=== PATIENT | female | born 1930 | race Caucasian/White ===

== ENCOUNTER → 2017-01-23 | Outpatient (CLI) | payer MEDICARE, OTHER ==
[~2017-01-23] MED LIST: ACET-2723 PO; HYDR-4246 PO; LISI40TA4 PO; METO-275 PO; VENL37.570 PO; VENL75CA46 PO
--- NOTE | 2017-01-23 09:50 | DI ---
EXAM: KUB COMPARISON: 10/31/2015. 06/20/2015. HISTORY: ITS.REASON: N20.0 L KIDNEY STONE; Z96.0 URETERAL STENT . FINDINGS: There is a small 3 mm calcification projecting over the lower pole of the right kidney. Multiple calcific densities are seen at the mid and lower pole of the left kidney ranging in size from 2 mm to 1.2 cm. These appear similar to the prior exam. No definite calcific densities are seen projecting over the past of the ureters. Calcifications are seen at the right pelvis likely representing phleboliths. The visceral organ outlines are unremarkable. There is an unremarkable bowel gas pattern. IMPRESSION: 1. Bilateral renal calculi again noted. 2. No definite calcifications are seen along the paths of the ureters. 3. Calcifications at the right pelvis may represent phleboliths. LOCATION OF DICTATION: [facility] – [place] .
== END ==
LOC: IMA 09:18
PROVIDERS: ATTEND Specialist
DX: N20.0 Calculus of kidney (principal); I99.8 Other disorder of circulatory system; Z96.0 Presence of urogenital implants

== ENCOUNTER 2017-06-03 15:19 | Inpatient (IN) ==
--- NOTE | 2017-06-03 15:43 | Emergency Department Report ---
General Adult HPI - General Chief complaint: Fall Stated complaint: Dizzy/Fall Time Seen by Provider: 06/03/17 15:35 Source: patient, family (son ) Limitations: no limitations - History of Present Illness HPI narrative: Patient resides at home and her son lives with her. Patient was here yesterday and dx with right kidney stone. Pt has a hx of renal stones and sx were the same . KUB was done and it indicated a stone approx 6 mm in size in the right ureter, Patient was d/c on norco and reportedly took one prior to the dizziness and fall however patient is a very poor historian and son provides minimal information. Patient is here today after sustaining a fall [employer]; patient states she was dizzy and stepped down a stair that was between rooms and dropped to her knees; this was an unwitnessed fall . Patient states she crawled to the carpet where she was able to get her self up. Patient does deny any flank or kidney stone pain at present. Patient is tremulous which was noted on her visit yesterday and patient states is "normal ' for her Room air sats noted to be 82% at time of arrival without noted dyspnea. Sats yesterday when she was here for kidney stone sats documented at 94% on room air. Patient was placed on 3 L/NC and sats went up to mid 90's. complaint: fall Onset (ago): hour(s) Relieving factors: none Exacerbating factors: none Associated symptoms: denies other symptoms - Related Data Home Medications Medication Instructions Recorded Confirmed Venlafaxine HCl [Effexor Xr] 37.5 mg PO HS #0 03/23/10 08/08/17 Venlafaxine HCl [Effexor Xr] 75 mg PO QAM #0 03/23/10 08/08/17 Acetaminophen [Tylenol Extra 1,000 mg PO TID #0 04/12/15 08/08/17 Strength] Lisinopril 40 mg PO DAILY #0 tab 08/31/16 08/08/17 Chromium Picolinate 1,000 mcg PO DAILY 06/02/17 08/08/17 Multivitamin [One Daily 1 tab PO DAILY 06/02/17 08/08/17 Multivitamin] [place]-3 Fatty Acids [[place]-3] 1,000 mg PO DAILY 06/02/17 08/08/17 Turmeric Root Extract [Turmeric] 500 mg PO DAILY 06/03/17 08/08/17 Amlodipine [Norvasc] 5 mg PO HS 08/08/17 08/08/17 Hydrocodone/APAP 5/325 [[place] 1 tab PO Q4H PRN 08/08/17 08/08/17 5/325] Metoprolol Succinate 25 mg PO DAILY 08/08/17 08/08/17 Previous Rx's Medication Instructions Recorded Magnesium Oxide [Magox] 800 mg PO DAILY tablet 06/08/17 Allergies Allergy/AdvReac Type Severity Reaction Status Date / Time phenazopyridine Allergy Mild Verified 08/08/17 16:42 amoxicillin Allergy Unknown Verified 08/08/17 16:42 ampicillin Allergy Unknown Verified 08/08/17 16:42 atorvastatin Allergy Unknown rash Verified 08/08/17 16:26 azithromycin Allergy Unknown Verified 08/08/17 16:26 benzonatate Allergy Unknown Verified 08/08/17 16:26 cefaclor Allergy Unknown Verified 08/08/17 16:26 erythromycin base Allergy Unknown Verified 08/08/17 16:26 fexofenadine Allergy Unknown Verified 08/08/17 16:26 meloxicam Allergy Unknown Verified 08/08/17 16:26 morphine Allergy Unknown NAUSEA Verified 08/08/17 16:26 naproxen Allergy Unknown Verified 08/08/17 16:26 Penicillins Allergy Unknown Verified 08/08/17 16:26 rofecoxib Allergy Unknown Verified 08/08/17 16:26 Sulfa (Sulfonamide Allergy Unknown Verified 08/08/17 16:26 Antibiotics) albuterol AdvReac Unknown Verified 08/08/17 16:26 Review of Systems All systems: reviewed and negative except as stated Constitutional: Reports: as per HPI, weakness (generalized ). Denies: fever, chills Eyes: Reports: as per HPI. Denies: eye pain, eye discharge ENT: Reports: as per HPI. Denies: ear pain, throat pain Cardiovascular: Reports: as per HPI. Denies: chest pain, palpitations, dyspnea on exertion Respiratory: Reports: as per HPI. Denies: cough, dyspnea, wheezes Gastrointestinal: Reports: as per HPI. Denies: abdominal pain, nausea, vomiting Genitourinary: Reports: as per HPI. Denies: urgency, dysuria, frequency PFSH Patient Stated Medical History Hypertension Yes Hx Kidney Stones Yes Medical History Updates: HTN. HL. Depression - Social History Smoking status: Never smoker Physical Exam - Limitations Limitations: no limitations - General General appearance: alert, in no apparent distress - Normal Exams: Head:: Normocephalic without trauma Eyes:: Pupils are PERRLA w/ EOMI, No scleral icterus, irritation, or foreign bodies noted Neck:: Full range of motion, without adenopathy, JVD, bruits or thyromegaly Chest/Respirations:: Clear all harding, with good airflow, and symmetry bilaterally Cardiovascular:: Regular rate and rhythm, without murmur or gallop, Pulses 2+ all extremities, capillary refill, <2 seconds all extremities Abdomen:: Bowel sounds positive Lymphatic:: No lymphadenopathy, or lymphedema noted Musculoskeletal:: No tenderness, or deformity noted, good range of motion, all extremities Integumentary:: No rashes, hives, or bruising noted, hair and nails, without abnormality Neurological:: Patient is alert, and oriented, cranial nerves, motor/sensory/ cerebellar, exams w/o gross deficits, to observation Psychiatric:: Patient exhibits, appropriate attention, emotion and affect Course - Reevaluation(s) Reevaluation #1: Saturations remain mid 80's on room air. No hx of COPD or CHF; does have occasional cough and complaints of sinus drainage. Breathing tx ordered. Addtional lab ordered now that was initially not ordered (CBC, CMP) because it had been done just 24 hours ago. CXR indicates cardiomegaly with possible effusion; no prior films to compare. Because of continued low sats, with decreased breath sounds, a breathing tx was ordered which did not improve sats. Additional lab work was ordered including an ABG . - Consultations Consultation #1: Dr Milligan Time: 17:30 (will admit; pending head CT and requests d dimer ) Vital Signs Temperature 98.1 F 06/03/17 15:24 Pulse Rate 84 06/03/17 15:24 Respiratory Rate 22 06/03/17 15:24 Blood Pressure 139/62 06/03/17 15:24 Pulse Oximetry 82 L 06/03/17 15:24 Temperature 97.0 F 06/08/17 08:00 Pulse Rate 94 06/08/17 08:00 Respiratory Rate 20 06/08/17 08:00 Blood Pressure 187/74 H 07/31/17 08:00 Pulse Oximetry 95 06/08/17 08:00 Medical Decision Making - [facility] Narrative Medical decision making narrative: Patient here for dizziness and fall to knees but oxygen saturations noted to be mid 80's without etiology so additional work up was done. Creat and BUN elevated since yesterday with creat 0.9 to 1.7. Hospitalist notified and accepts patient. Will add d dimer. - Differential Diagnosis CHF, COPD, PE, renal failure, dehydration, pneumonia - Lab Data Result diagrams: 06/07/17 03:56 06/08/17 07:48 Lab Results 06/03/17 06/03/17 06/03/17 Range/Units 15:55 15:55 15:55 WBC 11.4 H (4.5-11.0) T/MM3 RBC 4.20 (4.00-5.20) M/MM3 Hgb 12.5 (12-16) GM/DL Hct 38.1 (36-46) % MCV 90.7 (80-100) UM3 MCH 29.8 (26-34) UUG MCHC 32.8 (31-37) GM/DL RDW Std Deviation 42.0 (36.9-50.2) FL Plt Count 280 (130-400) T/MM3 MPV 10.2 (9.4-12.4) UM3 Immature Gran % (Auto) Not performed Neut % (Auto) Not performed Lymph % (Auto) Not performed [place] % (Auto) Not performed Eos % (Auto) Not performed Baso % (Auto) Not performed Neut # Not performed Lymph # Not performed [place] # Not performed Eos # Not performed Baso # Not performed Abs Immat Gran (auto) Not performed Neutrophils % (Manual) 91.0 H (33-66) % Lymphocytes % (Manual) 9.0 L (23-45) % Neutrophils # (Manual) 10.4 H (1.8-7.7) T/MM3 Lymphocytes # (Manual) 1.0 (1-4.8) T/MM3 RBC Morph Comment Normal D-Dimer 348 H (0-230) NG/ML ABG pH (7.350-7.450) ABG pCO2 (34-45) MMHG ABG pO2 (80-100) MMHG ABG HCO3 (22-26) MEQ/L ABG Total CO2 (23-27) MEQ/L ABG O2 Saturation (95.0-98.0) % ABG Base Excess (-2.0-2.0) MMOL/L O2 Delivery Method FiO2 % Turbidity < 20 (0-20) Sodium 143 (134-144) MEQ/L Potassium 4.2 (3.6-5) MEQ/L Chloride 105 (98-107) MEQ/L Carbon Dioxide 25 (22-30) MEQ/L Anion Gap 13 (5-15) MEQ/L BUN 29.0 H D (7-17) MG/DL Creatinine 1.7 H D (0.7-1.2) MG/DL GFR Calculation 28 BUN/Creatinine Ratio 17 (6-26) RATIO Glucose 123 H (65-110) MG/DL Calculated Osmolality 282 H (261-280) MOSM/KG Calcium 9.6 (8.4-10.2) MG/DL Total Bilirubin 0.60 (0.20-1.30) MG/DL Icterus Index < 2 (0-7) AST 30 (14-36) U/L ALT 40 (9-52) U/L Alkaline Phosphatase 69 (38-126) U/L Troponin I (0-0.12) ng/ml B-Natriuretic Peptide 3130 H (0-175) pg/mL Total Protein 6.5 (6.3-8.2) G/DL Albumin 4.3 (3.5-5.0) G/DL Globulin 2.2 L (2.4-3.6) G/DL Albumin/Globulin Ratio 2.0 (1.1-2.2) RATIO Specimen Hemolysis < 15 (0-25) 06/03/17 06/03/17 Range/Units 15:57 17:10 WBC (4.5-11.0) T/MM3 RBC (4.00-5.20) M/MM3 Hgb (12-16) GM/DL Hct (36-46) % MCV (80-100) UM3 MCH (26-34) UUG MCHC (31-37) GM/DL RDW Std Deviation (36.9-50.2) FL Plt Count (130-400) T/MM3 MPV (9.4-12.4) UM3 Immature Gran % (Auto) Neut % (Auto) Lymph % (Auto) [place] % (Auto) Eos % (Auto) Baso % (Auto) Neut # Lymph # [place] # Eos # Baso # Abs Immat Gran (auto) Neutrophils % (Manual) (33-66) % Lymphocytes % (Manual) (23-45) % Neutrophils # (Manual) (1.8-7.7) T/MM3 Lymphocytes # (Manual) (1-4.8) T/MM3 RBC Morph Comment D-Dimer (0-230) NG/ML ABG pH 7.379 (7.350-7.450) ABG pCO2 43 (34-45) MMHG ABG pO2 71 L (80-100) MMHG ABG HCO3 25 (22-26) MEQ/L ABG Total CO2 27 (23-27) MEQ/L ABG O2 Saturation 94.0 L (95.0-98.0) % ABG Base Excess 0.0 (-2.0-2.0) MMOL/L O2 Delivery Method Nasal cannula, liter FiO2 % 3 Turbidity (0-20) Sodium (134-144) MEQ/L Potassium (3.6-5) MEQ/L Chloride (98-107) MEQ/L Carbon Dioxide (22-30) MEQ/L Anion Gap (5-15) MEQ/L BUN (7-17) MG/DL Creatinine (0.7-1.2) MG/DL GFR Calculation BUN/Creatinine Ratio (6-26) RATIO Glucose (65-110) MG/DL Calculated Osmolality (261-280) MOSM/KG Calcium (8.4-10.2) MG/DL Total Bilirubin (0.20-1.30) MG/DL Icterus Index (0-7) AST (14-36) U/L ALT (9-52) U/L Alkaline Phosphatase (38-126) U/L Troponin I 0.070 (0-0.12) ng/ml B-Natriuretic Peptide (0-175) pg/mL Total Protein (6.3-8.2) G/DL Albumin (3.5-5.0) G/DL Globulin (2.4-3.6) G/DL Albumin/Globulin Ratio (1.1-2.2) RATIO Specimen Hemolysis < 15 (0-25) Disposition Clinical Impression: Hypoxia, Acute renal injury Disposition: 02 To [facility] [place] Condition: Stable Time of Disposition: 17:41 - Seen By: midlevel
--- NOTE | 2017-06-03 16:11 | XRay Report ---
Indication: hypoxia PROCEDURE: XR chest 1V: Encounter: Initial Comparison: KUB dated June 02, 2017 Findings: No focal consolidative pneumonia. There is prominence to the right hilar contour with a convex margin. This may be artifactual or due to pulmonary vascular prominence as this appearance is not seen on the comparison KUB from yesterday. No pleural effusion or pneumothorax. Cardiac silhouette is mildly enlarged. Pulmonary vascularity appears normal. Impression: 1. No pneumonia. 2. Enlarged cardiac silhouette which could be due to cardiomegaly or pericardial effusion. 3. Rounded prominence of the right hilar contour. Recommend comparison with any available prior chest x-rays. If comparisons are unavailable short-term follow-up radiographs or chest CT could be performed for additional evaluation. .
[2017-06-03] MEDS ORDERED: ALBUTEROL/IPRATROPIUM 2.5mg-0.5mg/3ml NEB AEROSOL ONE (16:27)
[2017-06-03] MEDS ORDERED: DICYCLOMINE 10mg CAPSULE PO PRN (18:14)
[2017-06-03] MEDS ORDERED: NS 1,000 ML IV SCH (18:15)
--- NOTE | 2017-06-03 18:16 | History & Physical Report ---
<Tahira Shah V - Last Filed: 06/03/17 18:24> History of Present Illness Date: 06/03/17 Chief complaint: Falls, hypoxia, LANNY HPI: Patient is an 87-year-old female who was seen in the emergency room yesterday and diagnosed with a 6 millimeter meter renal calculi in the right ureter. She was sent home on oxycodone for pain control. Today she was at home where she resides independently with her son. She states that she had taken an oxycodone prior to becoming dizzy and falling. She reports that she stepped down on a stair and then fell to her knees. She states that she was able to crawl across to her carpet and returned herself on in [place] time she contacted her son who helped her up. Due to this acute event. She was brought to the emergency room for further evaluation. Upon arrival to the emergency room. She was found to be hypoxic with room air saturations of 82%. This is not normal for patient as her sats yesterday were 94%. She was placed on oxygen to maintain adequate saturations. A chest x-ray was obtained today does reveal cardiomegaly as well as some prominence in the right hilar region. The WBC count today was slightly elevated at 11.4, up from 9.9 yesterday. Neutrophils were up to 91%. Remaining CBC was unremarkable. Renal function was found to be elevated. BUN of 29 and creatinine of 1.7. Creatinine yesterday was 0.9. LFTs were normal. Remaining electrolytes unremarkable. An ABG was obtained, given her acute hypoxia. PH 7.379, pCO2 43, pO2 71. Given her continued hypoxia, accompanied with increase in renal function. The hospitalist services were contacted for inpatient admission for further evaluation and treatment. Patient denies any flank pain or dysuria on admission. She has no complaints of dizziness or lightheadedness. Review of Systems All systems: reviewed and no additional remarkable complaints except as stated - Neurological Neurological: Present: dizziness (now resolved) [facility] Patient Stated Medical History Multiple renal Calculi HTN Kidney Disease Depression Osteoporosis Athrisis Surgical History: Appendectomy - as a child. Tonsillectomy - as a child. Hernia repair - 1960s. Hysterectomy - 1965. Cataracts - 2013. Carpal tunnel release. cholecystectomy - . colonoscopy 10/18/2013. Hammer toe surgery. Multiple lithotripsy Family History: Mother in 1957 of brain cancer Father of heart problems, but also had emphysema from smoking Son has kidney stones Lost one child in 1961 - Social History Smoking status: Never smoker Substance use type: does not use Alcohol intake frequency: does not drink Housing: house Household members: children Current residence: Apartment/Private Home Social history: PCP Dr Tenorio Urologist- Dr Bryson Medications Home Medications Medication Instructions Recorded Confirmed Type Venlafaxine HCl [Effexor Xr] 37.5 mg PO HS #0 03/23/10 06/03/17 History Venlafaxine HCl [Effexor Xr] 75 mg PO DAILY #0 03/23/10 06/03/17 History Acetaminophen [Tylenol Extra 1,000 mg PO TID PRN #0 04/12/15 06/03/17 History Strength] Lisinopril 40 mg PO DAILY #0 tab 08/31/16 06/03/17 History Metoprolol Succinate 25 mg PO DAILY #0 tab 01/02/17 06/03/17 History Chromium Picolinate 500 mcg PO BID 06/02/17 06/03/17 History Multivitamin [One Daily 1 tab PO DAILY 06/02/17 06/03/17 History Multivitamin] Charlotte-3 Fatty Acids [Charlotte-3] 1,000 mg PO DAILY 06/02/17 06/03/17 History Alfuzosin [Uroxatral] 10 mg PO DAILY 06/03/17 06/03/17 History Dicyclomine [Bentyl] 10 mg PO QID PRN 06/03/17 06/03/17 History Turmeric Root Extract [Turmeric] 500 mg PO DAILY 06/03/17 06/03/17 History Allergies Allergy/AdvReac Type Severity Reaction Status Date / Time phenazopyridine Allergy Mild Verified 06/03/17 15:50 amoxicillin Allergy Unknown Verified 06/03/17 15:50 ampicillin Allergy Unknown Verified 06/03/17 15:50 atorvastatin Allergy Unknown rash Verified 06/03/17 15:50 azithromycin Allergy Unknown Verified 06/03/17 15:50 benzonatate Allergy Unknown Verified 06/03/17 15:50 cefaclor Allergy Unknown Verified 06/03/17 15:50 erythromycin base Allergy Unknown Verified 06/03/17 15:50 meloxicam Allergy Unknown Verified 06/03/17 15:50 morphine Allergy Unknown NAUSEA Verified 06/03/17 15:50 Penicillins Allergy Unknown Verified 06/03/17 15:50 rofecoxib Allergy Unknown Verified 06/03/17 15:50 Sulfa (Sulfonamide Allergy Unknown Verified 06/03/17 15:50 Antibiotics) fexofenadine HCl Allergy Unknown Uncoded 01/13/17 07:19 naproxen sodium Allergy Unknown Uncoded 01/13/17 07:19 albuterol sulfate AdvReac Unknown Uncoded 01/13/17 07:19 Exam Vital Signs: Temperature 98.1 F 06/03/17 15:24 Pulse Rate 80 06/03/17 16:45 Respiratory Rate 16 06/03/17 16:38 Blood Pressure 139/62 06/03/17 15:24 Pulse Oximetry 93 06/03/17 16:45 Oxygen Delivery Method Nasal Cannula Oxygen Flow Rate 3 Height: 1.7 m Weight: 81 kg - Constitutional Present: no acute distress, well nourished, well developed - Routine HEENT Exam Head: Present: normocephalic, atraumatic Eye: Present: EOMI ENT: Present: mucous membranes dry, dentition normal - Routine Neck Exam Present: supple, full ROM - Routine Respiratory Exam Present: CTA bilaterally. Absent: wheezes - Routine Cardiovascular Exam Present: RRR. Absent: murmur - Routine Abdominal Exam Present: soft, normoactive bowel sounds, non distended. Absent: tenderness - Routine Extremities Exam Present: normal capillary refill - Routine Back/Spine/Pelvis Exam Back/Spine: Present: full ROM. Absent: CVA tenderness - Routine Skin Exam Present: intact, dry, warm - Routine Neurological Exam Present: alert, oriented X3, CN II-XII intact - Routine Psychiatric Exam Present: normal affect, normal thought process Results - Labs CBC & Chem 7: 06/03/17 15:55 06/03/17 15:55 - ABG Interpretation ABG results: 06/03/17 17:10 ABG pH 7.379 ABG pCO2 43 ABG pO2 71 L ABG HCO3 25 ABG Total CO2 27 ABG O2 Saturation 94.0 L ABG Base Excess 0.0 Assessment and Plan (1) Acute renal injury Current visit: Yes Status: Acute (2) Hypoxia Current visit: Yes Status: Acute (3) Dizziness Current visit: Yes Status: Acute DVT Prophylaxis: SCD's Resuscitation Status: Do Not Resuscitate Assessment and Plan: Assessment Dizziness with fall. Acute Hypoxia Acute kidney injury Recent diagnosis of renal calculi Hypertension Depression Osteoarthritis Plan Admit patient to inpatient status under the care of Dr. Milligan for dizziness, acute hypoxia and acute kidney injury. Given acute dizziness. Will place patient on cardiac telemetry to monitor for dysrhythmias. Patient currently requiring 2 liters of oxygen by nasal cannula to maintain adequate saturations. Will wean down as able. Question of hypoxia is secondary to increased sedation. Given the patient started oxycodone for pain control today. He is currently not having any flank pain and feels that she possibly passed her renal calculi. Will avoid any opioids at this time and order Tylenol for pain control. Creatinine increased from 0.9 yesterday to 1.7 today. It does not appear that patient received any NSAIDs or other acute renal toxic medications. She does chronically take lisinopril which will be placed on hold at time of admission. We'll obtain a d-dimer to rule out pulmonary emboli. Given recent hypoxia. This is pending at time of admission. Normal saline at 100 ML per hour for gentle hydration. Monitor for fluid overload. Will continue with home medications including metoprolol 25 milligrams daily. Monitor blood pressures. Given that lisinopril is currently on hold. SCDs to bilateral lower extremity for DVT prophylaxis. May consider placing consult for PT and OT tomorrow. Given recent falls. Patient does request to be a do not resuscitate and this orders written Check CBC and BMP tomorrow morning to follow blood counts, renal function and electrolytes Discuss further orders and plan of care with attending, Dr. Milligan. At time of discharge medical care will return to primary care provider, Dr. Ida Tenorio [facility] Hospital Course Summary Disclaimer: The visit summary below is not to be considered part of the above Progress Note. Hospital Course: 06/03/17- Admission Plan Admit patient to inpatient status under the care of Dr. Milligan for dizziness, acute hypoxia and acute kidney injury. Given acute dizziness. Will place patient on cardiac telemetry to monitor for dysrhythmias. Patient currently requiring 2 liters of oxygen by nasal cannula to maintain adequate saturations. Will wean down as able. Question of hypoxia is secondary to increased sedation. Given the patient started oxycodone for pain control today. He is currently not having any flank pain and feels that she possibly passed her renal calculi. Will avoid any opioids at this time and order Tylenol for pain control. Creatinine increased from 0.9 yesterday to 1.7 today. It does not appear that patient received any NSAIDs or other acute renal toxic medications. She does chronically take lisinopril which will be placed on hold at time of admission. We'll obtain a d-dimer to rule out pulmonary emboli. Given recent hypoxia. This is pending at time of admission. Normal saline at 100 ML per hour for gentle hydration. Monitor for fluid overload. Will continue with home medications including metoprolol 25 milligrams daily. Monitor blood pressures. Given that lisinopril is currently on hold. SCDs to bilateral lower extremity for DVT prophylaxis. May consider placing consult for PT and OT tomorrow. Given recent falls. Patient does request to be a do not resuscitate and this orders written Check CBC and BMP tomorrow morning to follow blood counts, renal function and electrolytes Discuss further orders and plan of care with attending, Dr. Milligan. At time of discharge medical care will return to primary care provider, Dr. Ida Tenorio <Francesca Milligan - Last Filed: 06/03/17 20:50> History of Present Illness Date: 06/03/17 [facility] Patient Stated Medical History Cataracts Yes: REMOVED Dental Problems Yes: DENTURES Hypertension Yes Hx Kidney Stones Yes Osteoarthritis Yes Shingles Yes Depression Yes: 1960'S Post Menopausal Yes Exam Vital Signs: Temperature 96.2 F L 06/03/17 18:53 Pulse Rate 81 06/03/17 18:53 Respiratory Rate 20 06/03/17 18:53 Blood Pressure 139/71 06/03/17 18:53 Pulse Oximetry 96 06/03/17 18:53 Oxygen Delivery Method Nasal Cannula Oxygen Flow Rate 3 Height: 1.7 m Weight: 85.7 kg Results - Labs CBC & Chem 7: 06/03/17 15:55 06/03/17 15:55 Assessment and Plan (1) Acute respiratory failure with hypoxia Current visit: Yes Status: Acute (2) Hypoxia Current visit: Yes Status: Acute (3) Acute renal injury Current visit: Yes Status: Acute (4) Dizziness Current visit: Yes Status: Acute Assessment and Plan: I have independently evaluated and examined this patient. I reviewed the chart, the patient's history, and the FINANCIAL REPORTING ADVISOR/PA's documented findings as above. We discussed and formulated the assessment and plan as above with additions as below: Mrs. Adler was seen with family members at the bedside. The patient presented to the emergency room yesterday with intense right flank pain consistent with kidney stone requiring IV fentanyl and subsequently she was discharged home with oxycodone. We will send notes that she will had borderline hypoxia in the ER yesterday with saturations would drop occasionally to 87%. She denies any respiratory symptoms yesterday or today. This morning she awoke pain-free and is convinced she must of passed a stone. She reports that yesterday's event was the worst kidney stone she's ever had. She felt slightly woozy this morning and fell backward striking her back which prompted today's ER evaluation where she was noted to be hypoxic. She's had a minor cough which she thinks is due to his her sinuses-son reports it's nothing out of the ordinary. She's had no wheezing or pleuritic pain. She denied chest pain or palpitations. She has no cardiac history. The patient is alert and cooperative on examination. Respirations are nonlabored but breath sounds are diminished at the bases bilaterally, there is no wheezing and no crackles are appreciated. Cardiac rhythm is regular, there is trace edema of the extremities. Patient moves lower extremities symmetrically and sensation is intact bilaterally Perioral tremor present. Head CT reviewed by myself demonstrating atrophy and small vessel ischemic changes but no acute pathology. Chest x-ray with cardiomegaly, prominence of the right hilum, and minor increased vascular markings. Cardiomegaly described on chest x-ray at [facility] earlier this year. EKG also reviewed by myself demonstrating sinus rhythm, LAD, and possible old anterior infarction, low voltage present throughout. White count is slightly elevated compared to yesterday, d-dimer 348- unremarkable given patient age, blood gases noted, BNP 3130, and creatinine has increased from 0.9-1.7 with BUN climbing from 17 to 29 from yesterday. Suspect hypoventilation due to narcotics is contributing to current hypoxia as exam suggests hypoventilation-add incentive spirometer. Echocardiogram to be obtained, no past cardiac history per patient but clearly EKG is abnormal. Will hold off on diuretics currently due to bump in creatinine which I suspect is due to nephrolithiasis and transient ureteral obstruction yesterday, reassess tomorrow. Discussed with the ER provider, outpatient records reviewed, EKG/head CT reviewed by myself. Supplemental history provided by family members. Hospital Course Summary Disclaimer: The visit summary below is not to be considered part of the above Progress Note.
[2017-06-03] MEDS: NS 1,000 ML IV SCH (18:25)
[2017-06-03 18:55] VITALS: BMI 29.5
[2017-06-03] MEDS: Venlafaxine XR 37.5 MG CAPSULE (24hr) PO SCH (21:53)
[2017-06-04] MEDS: NS 1,000 ML IV SCH ×2 (04:51→15:45)
--- NOTE | 2017-06-04 08:07 | CT Scan Report ---
Indication: dizziness, fall PROCEDURE: CT head/brain wo con: Encounter: Initial Comparison: None Technique: Axial CT images through the head were performed without contrast. Iterative Reconstruction dose reducing technique was utilized. FINDINGS: The ventricles are of normal size, shape, and configuration for the patient's age. There is no evidence of acute intracranial hemorrhage, midline displacement, or mass effect. There are scattered areas of low attenuation in the white matter which most likely represent changes of chronic microvascular ischemia. The CT attenuation of the brain parenchyma is otherwise normal within the cerebellum, brain stem, and cerebral hemispheres. The tympanic cavities and mastoid air cells are free of appreciable disease. There are no definite fractures of the skull base, calvarium, or visualized portion of the midface. IMPRESSION: No CT evidence of acute traumatic intracranial injury. There is a preliminary report by [facility]. .
[2017-06-04] MEDS: ACETAMINOPHEN 500 MG TABLET PO PRN ×3 (08:46→21:25)
[2017-06-04] MEDS ORDERED: Venlaflaxine XR 75 MG CAPSULE (24hr) PO SCH (09:00)
--- NOTE | 2017-06-04 11:19 | Progress Note ---
<Tahira Shah V - Last Filed: 06/04/17 11:16> Subjective: aZk is seen this morning in follow up. She is currently on 3 liters of oxygen. She complains of having some left side pain that radiates down her left leg. She states that she thinks she pulled something when she fell. There is no evidence of ecchymosis or trauma. She is able to move her leg and hip without any difficulty. Abdomen is soft and nontender without evidence of trauma. She otherwise denies feeling short of breath or having chest pain. She states that she was up with the walker earlier today and tolerated this well. Objective Vital signs: Temperature 97.6 F 06/04/17 07:51 Pulse Rate 86 06/04/17 07:51 Respiratory Rate 18 06/04/17 07:51 Blood Pressure 156/67 H 06/04/17 07:51 Pulse Oximetry 94 06/04/17 07:51 Oxygen Delivery Method Nasal Cannula Oxygen Flow Rate 3 Weight: 86.7 kg - Constitutional Present: no acute distress, well nourished, well developed - Routine HEENT Exam Head: Present: normocephalic, atraumatic Eye: Present: EOMI ENT: Present: mucous membranes moist, dentition normal - Routine Respiratory Exam Present: CTA bilaterally, diminished air movement (diminished in bilateral bases ). Absent: wheezes - Routine Cardiovascular Exam Present: RRR, S1, S2. Absent: murmur - Routine Abdominal Exam Present: soft, normoactive bowel sounds, non distended. Absent: tenderness - Routine Extremities Exam Present: normal capillary refill - Routine Skin Exam Present: intact, dry, warm Comments: Patient is tender on the left side of her trunk without evidence of trauma - Routine Neurological Exam Present: alert, oriented X3, CN II-XII intact, moving all extremities - Routine Lymphatic Exam Lymphatic: Absent: adenopathy - Routine Psychiatric Exam Present: normal affect, normal thought process Results - Labs CBC & Chem 7: 06/04/17 04:22 06/04/17 04:22 Assessment and Plan (1) Hypoxia Current visit: Yes Status: Acute (2) Acute renal injury Current visit: Yes Status: Acute (3) Dizziness Current visit: Yes Status: Acute (4) Acute respiratory failure with hypoxia Current visit: Yes Status: Acute Assessment and Plan: 06/04/17 Continues to require oxygen, currently at 3L. Have asked nursing to wean down. Continue with Incentive spirometery ECHO obtained and is pending cardiology read. Renal function today continues to worsen and Veterans' Counselor is up to 1.9. Renal sonogram ordered given recent 6mm renal calculi. Need to rule out obstruction. Continues on NS at 100ml/hr for ongoing hydration OT to work on gait given recent falls. Monitor soft tissue injuries to left side. No noted ecchymosis or trauma SCDs to bilateral lower ext to DVT prophylaxis Sepsis Assessment - Evaluation Sepsis screening result: No Definite Risk Hospital Course Summary Disclaimer: The visit summary below is not to be considered part of the above Progress Note. Hospital Course: 06/03/17- Admission Plan Admit patient to inpatient status under the care of Dr. Milligan for dizziness, acute hypoxia and acute kidney injury. Given acute dizziness. Will place patient on cardiac telemetry to monitor for dysrhythmias. Patient currently requiring 2 liters of oxygen by nasal cannula to maintain adequate saturations. Will wean down as able. Question of hypoxia is secondary to increased sedation. Given the patient started oxycodone for pain control today. He is currently not having any flank pain and feels that she possibly passed her renal calculi. Will avoid any opioids at this time and order Tylenol for pain control. Creatinine increased from 0.9 yesterday to 1.7 today. It does not appear that patient received any NSAIDs or other acute renal toxic medications. She does chronically take lisinopril which will be placed on hold at time of admission. We'll obtain a d-dimer to rule out pulmonary emboli. Given recent hypoxia. This is pending at time of admission. Normal saline at 100 ML per hour for gentle hydration. Monitor for fluid overload. Will continue with home medications including metoprolol 25 milligrams daily. Monitor blood pressures. Given that lisinopril is currently on hold. SCDs to bilateral lower extremity for DVT prophylaxis. May consider placing consult for PT and OT tomorrow. Given recent falls. Patient does request to be a do not resuscitate and this orders written Check CBC and BMP tomorrow morning to follow blood counts, renal function and electrolytes Discuss further orders and plan of care with attending, Dr. Milligan. At time of discharge medical care will return to primary care provider, Dr. Ida Tenorio 07/27/17 - Renal US pending, Veterans' Counselor continues to be elevated. ECHO pending, Work on weaning down oxygen. <Francesca Milligan - Last Filed: 06/04/17 17:16> Objective Vital signs: Temperature 98 F 06/04/17 15:48 Pulse Rate 84 06/04/17 15:48 Respiratory Rate 18 06/04/17 15:48 Blood Pressure 183/87 H 06/04/17 15:48 Pulse Oximetry 93 06/04/17 15:48 Oxygen Delivery Method Nasal Cannula Oxygen Flow Rate 1 Results - Labs CBC & Chem 7: 06/04/17 04:22 06/04/17 04:22 Assessment and Plan (1) Acute respiratory failure with hypoxia Current visit: Yes Status: Acute (2) Hypoxia Current visit: Yes Status: Acute (3) Acute renal injury Current visit: Yes Status: Acute (4) Dizziness Current visit: Yes Status: Acute Resuscitation Status: Do Not Resuscitate Assessment and Plan: Assessment Dizziness with fall. Acute Hypoxia Acute kidney injury Ambulatory dysfunction Recent diagnosis of renal calculi Hypertension Depression Osteoarthritis I have independently evaluated and examined this patient. I reviewed the chart, the patient's history, and the FOREST FIRE FIGHTER/PA's documented findings as above. We discussed and formulated the assessment and plan as above with additions as below: Mrs. Adler was seen with sons at the bedside. She reports minor cough but otherwise denies dyspnea. She reports that she is jittery when she walked with PT earlier today. Oxygen has been titrated to 1 L with stable saturations. Urine output was poor overnight but has improved through the day today with IV fluids. Weight up 1 kg. The patient is alert and cooperative. Respirations are nonlabored and air flow is improved today with development of crackles at the bases bilaterally. Cardiac rhythm is regular and abdomen is soft. Telemetry reviewed-sinus rhythm with occasional PVCs. Renal sonogram reviewed by myself-mild right hydronephrosis without evidence of current obstruction, left kidney unremarkable. Radiology reports presence of bilateral kidney stones which are nonobstructing. Will initiate diuresis, electrolytes/renal function being reassess this afternoon. PT recommended IRU evaluation due to recent falls-ordered. Echocardiogram completed-report pending for evaluation of cardiomegaly and hypoxia. Repeat chest x-ray a.m. Hospital Course Summary Disclaimer: The visit summary below is not to be considered part of the above Progress Note.
--- NOTE | 2017-06-04 12:16 | Ultrasound Report ---
Indication: LANNY, hx nephrolithiasis PROCEDURE: US renal BI: Encounter: Initial Comparison: Renal CT dated August 31, 2016 Technique: Grayscale and color Doppler sonographic imaging of both kidneys was performed. FINDINGS: Both kidneys are present with normal cortical thickness and echogenicity. Mild right hydronephrosis. Small bilateral renal stones. No significant left hydronephrosis. No renal mass lesion seen. Right kidney measures 12.8 cm in length. Left kidney measures 11.2 cm in length. Impression: Bilateral nephrolithiasis with mild right hydronephrosis. .
[2017-06-04] MEDS ORDERED: DICYCLOMINE 10mg CAPSULE PO PRN (13:30)
--- NOTE | 2017-06-04 16:16 | Echocardiogram ---
DATE OF PROCEDURE June 04, 2017 This is a two-dimensional echo with spectral Doppler, color-flow and M-mode. It was obtained in a patient with cardiomegaly. Left atrial dimension is normal. Left ventricular end-diastolic dimension is normal. Left ventricular wall thickness is at the upper limits of normal. LV systolic function is normal with ejection fraction of about 60%. Right atrium is normal. Right ventricle is normal. Aortic root dimension is normal. Mitral valve is morphologically normal with mild mitral regurgitation. Aortic valve appears to be normal. Tricuspid valve shows mild tricuspid regurgitation with estimated pulmonary artery systolic pressure of 33. Pulmonary valve shows trace of pulmonary insufficiency. There is no pericardial effusion. IMPRESSION 1. Normal LV systolic function with ejection fraction of about 60%. 2. Mild mitral regurgitation. 3. Mild tricuspid regurgitation with estimated pulmonary artery systolic pressure of 33. 4. Trace of pulmonary insufficiency. MTDD
[2017-06-04] MEDS ORDERED: FUROSEMIDE 20 MG/2 ML INJECTION IVP ONE (16:41)
[2017-06-04] MEDS: SALINE FLUSH 10ml SYRINGE IVF PRN ×2 (16:50→18:02)
[2017-06-04] MEDS ORDERED: ONDANSETRON 4 MG/2 ML INJECTION IVP PRN (17:58)
[2017-06-04] MEDS: Venlafaxine XR 37.5 MG CAPSULE (24hr) PO SCH (21:25)
[2017-06-05] MEDS ORDERED: MAGNESIUM SULFATE 1gm PREMIX 1 GM/100 ML BAG IV ONE (06:20)
--- NOTE | 2017-06-05 08:30 | XRay Report ---
INDICATION: hypoxia PROCEDURE: CHEST 2-VIEWS UPRIGHT (PA & LAT) Encounter: Initial COMPARISON: June 03, 2017 FINDINGS: Lungs are hypoinflated with mild bronchovascular crowding. No consolidative pneumonia, gross pleural effusion or pneumothorax. Cardiac silhouette is mildly enlarged but unchanged. There is less prominence to the right hilar contour on today's study. Pulmonary vascularity appears normal. Impression: Mild hypoinflation without focal pneumonia or congestive failure. .
[2017-06-05] MEDS: LISINOPRIL 40 MG TABLET PO SCH (08:31)
[2017-06-05] MEDS: ACETAMINOPHEN 500 MG TABLET PO PRN ×3 (08:31→21:58)
[2017-06-05] MEDS: Venlaflaxine XR 75 MG CAPSULE (24hr) PO SCH (08:31)
--- NOTE | 2017-06-05 14:34 | Progress Note ---
<Tahira Shah V - Last Filed: 06/05/17 14:27> Subjective: Mrs Adler is seen this afternoon while resting in bed. She states that overall she is feeling better. Denies pain or shortness of breath. She does state that her appetite continues to be diminished has not been taste good. Blood pressure mildly elevated this morning 170/77. Patient used 1 liter of oxygen overnight and has been able to wean down to room air. She does drop slightly with exertion to 89-90%. Objective Vital signs: Temperature 97.7 F 06/05/17 00:24 Pulse Rate 72 06/05/17 07:25 Respiratory Rate 18 06/05/17 07:25 Blood Pressure 170/77 H 06/05/17 07:25 Pulse Oximetry 94 06/05/17 07:25 Oxygen Delivery Method Nasal Cannula Oxygen Flow Rate 1 Weight: 86.5 kg - Constitutional Present: well nourished, well developed - Routine HEENT Exam Eye: Present: EOMI ENT: Present: mucous membranes moist, dentition normal - Routine Respiratory Exam Present: CTA bilaterally. Absent: wheezes - Routine Cardiovascular Exam Present: RRR, S1, S2. Absent: murmur - Routine Abdominal Exam Present: soft, normoactive bowel sounds, non distended. Absent: tenderness - Routine Extremities Exam Present: normal capillary refill - Routine Back/Spine/Pelvis Exam Back/Spine: Present: full ROM - Routine Skin Exam Present: intact, dry, warm - Routine Neurological Exam Present: alert, oriented X3, CN II-XII intact, moving all extremities - Routine Lymphatic Exam Lymphatic: Absent: adenopathy - Routine Psychiatric Exam Present: normal affect Results - Labs CBC & Chem 7: 06/04/17 04:22 06/05/17 04:19 Assessment and Plan (1) Hypoxia Current visit: Yes Status: Acute (2) Acute renal injury Current visit: Yes Status: Acute (3) Dizziness Current visit: Yes Status: Acute (4) Acute respiratory failure with hypoxia Current visit: Yes Status: Acute Assessment and Plan: 06/05/17 Assessment Hypokalemia Nonsustained V. tach Dizziness with fall Acute Hypoxia Acute kidney injury Ambulatory dysfunction Recent diagnosis of renal calculi Hypertension Depression Osteoarthritis Plan Able to wean down to room air this morning, however, does require 0.5 of oxygen with exertion. Continue to work on this Renal function has returned to normal. She was started back on home lisinopril 40 milligrams daily. Continue with metoprolol 20 milligrams daily. Mild hypokalemia likely due to IV Lasix receive last evening. Will replace orally 20 MEQ x 1 now She did have a reported run of V. tach overnight. She was given supplemental magnesium, although magnesium was borderline low at 1.8. Due to her recent falls. She has agreed to go to IRU for further therapy and improved strength. Sepsis Assessment - Evaluation Sepsis screening result: No Definite Risk Hospital Course Summary Disclaimer: The visit summary below is not to be considered part of the above Progress Note. Hospital Course: 06/03/17- Admission Plan Admit patient to inpatient status under the care of Dr. Milligan for dizziness, acute hypoxia and acute kidney injury. Given acute dizziness. Will place patient on cardiac telemetry to monitor for dysrhythmias. Patient currently requiring 2 liters of oxygen by nasal cannula to maintain adequate saturations. Will wean down as able. Question of hypoxia is secondary to increased sedation. Given the patient started oxycodone for pain control today. He is currently not having any flank pain and feels that she possibly passed her renal calculi. Will avoid any opioids at this time and order Tylenol for pain control. Creatinine increased from 0.9 yesterday to 1.7 today. It does not appear that patient received any NSAIDs or other acute renal toxic medications. She does chronically take lisinopril which will be placed on hold at time of admission. We'll obtain a d-dimer to rule out pulmonary emboli. Given recent hypoxia. This is pending at time of admission. Normal saline at 100 ML per hour for gentle hydration. Monitor for fluid overload. Will continue with home medications including metoprolol 25 milligrams daily. Monitor blood pressures. Given that lisinopril is currently on hold. SCDs to bilateral lower extremity for DVT prophylaxis. May consider placing consult for PT and OT tomorrow. Given recent falls. Patient does request to be a do not resuscitate and this orders written Check CBC and BMP tomorrow morning to follow blood counts, renal function and electrolytes Discuss further orders and plan of care with attending, Dr. Milligan. At time of discharge medical care will return to primary care provider, Dr. Ida Tenorio 06/04/17 - Renal US pending, Jailer/Training Officer continues to be elevated. ECHO pending, Work on weaning down oxygen. 06/05/17- Replace potassium and magnesium. NSVT overnight. Continue to work on weaning down oxygen. Discuss with IRU for possible admission for ongoing strengthening <SriniFrancesca L - Last Filed: 06/05/17 19:19> Objective Vital signs: Temperature 96.3 F L 06/05/17 15:19 Pulse Rate 72 06/05/17 15:19 Respiratory Rate 18 06/05/17 15:19 Blood Pressure 139/67 06/05/17 15:19 Pulse Oximetry 90 06/05/17 15:19 Oxygen Delivery Method Room Air Oxygen Flow Rate 1 Results - Labs CBC & Chem 7: 06/04/17 04:22 06/05/17 04:19 Assessment and Plan (1) Acute respiratory failure with hypoxia Current visit: Yes Status: Acute (2) Hypoxia Current visit: Yes Status: Acute (3) Acute renal injury Current visit: Yes Status: Acute (4) Dizziness Current visit: Yes Status: Acute Assessment and Plan: I have independently evaluated and examined this patient. I reviewed the chart, the patient's history, and the PORTABLE GRINDING MACHINE OPERATOR/PA's documented findings as above. We discussed and formulated the assessment and plan as above with additions as below: Mrs. Adler reports feeling well. She denies lightheadedness, dyspnea, chest pain, or palpitations. Echocardiogram report available today with normal systolic function and ejection fraction of 60%, mild mitral regurgitation, PAP 33, and trace PI. The patient is in no distress and respirations are nonlabored with improved air flow and no crackles. Cardiac rhythm is regular with low-grade tachycardia at the time of my assessment. Suspect hypokalemia contributed to nonsustained VT, normal LV function. Beta zonia increased. Continue to monitor. Potassium replaced, reassess in a.m.-may require further replacement. Rehabilitation versus fpc being considered. Chest x-ray reviewed by myself-no infiltrates, borderline cardiomegaly, hypoventilation. Multiple conversations with patient/family members/case management regarding discharge options throughout the day. - Time spent with patient greater than 35 minutes Coordination of Care: >50% of visit spent providing counseling/coordination of care Hospital Course Summary Disclaimer: The visit summary below is not to be considered part of the above Progress Note. Addendum entered and electronically signed by Tahira Shah APRN 06/05/17 16 :51: 1645- Met with patient and son Kishor. Discussed change in plans regarding possible IRU versus fpc. Patient and son verbalized they understand that if patient is evaluated on Thursday or Thursday and does not meet criteria for the inpatient redilatation unit that they are open to pursuing fpc at a local facility while patient is able to get stronger. Her ultimate goal would be to return home. Discussed medical necessities that we are continue to work on including hypoxia , hypokalemia and run of NSVT overnight. Beta zonia was increased. Will discuss with Dr Milligan.
[2017-06-05] MEDS: Venlafaxine XR 37.5 MG CAPSULE (24hr) PO SCH ×2 (22:00→22:21)
[2017-06-05] MEDS: SALINE FLUSH 10ml SYRINGE IVF PRN (22:21)
[2017-06-06] MEDS: LISINOPRIL 40 MG TABLET PO SCH (08:36)
[2017-06-06] MEDS: ACETAMINOPHEN 500 MG TABLET PO PRN ×3 (08:36→21:03)
[2017-06-06] MEDS: Venlaflaxine XR 75 MG CAPSULE (24hr) PO SCH (08:42)
--- NOTE | 2017-06-06 16:40 | Progress Note ---
Subjective: Pt states she is feeling well today. Her BP has been pretty high and HR is in the 80's. Denies any CP/SOB. No palpitations, no new events of NSVT. Objective Vital signs: Temperature 96.6 F L 06/06/17 15:46 Pulse Rate 84 06/06/17 15:46 Respiratory Rate 18 06/06/17 07:38 Blood Pressure 181/92 H 06/06/17 15:51 Pulse Oximetry 90 06/06/17 15:46 Oxygen Delivery Method Room Air Oxygen Flow Rate 1 Rhythm: Normal Sinus Rhythm Weight: 85.6 kg - Constitutional Present: no acute distress - Routine HEENT Exam Head: Present: normocephalic, atraumatic Eye: Present: EOMI, PERRL - Routine Respiratory Exam Present: CTA bilaterally - Routine Cardiovascular Exam Present: S1, S2 - Routine Abdominal Exam Present: soft, non distended, non tender - Routine Extremities Exam Absent: cyanosis, clubbing, edema - Routine Skin Exam Present: intact - Routine Neurological Exam Present: alert, oriented X3, CN II-XII intact, normal reflexes. Absent: motor deficit - Routine Psychiatric Exam Present: normal affect, good insight, good judgment Results - Labs CBC & Chem 7: 06/04/17 04:22 06/06/17 03:52 Assessment and Plan (1) Hypoxia Current visit: Yes Status: Acute (2) Acute renal injury Current visit: Yes Status: Resolved (3) Dizziness Current visit: Yes Status: Acute (4) Acute respiratory failure with hypoxia Current visit: Yes Status: Resolved Assessment and Plan: Summary - Ms Ríos is a 87 YO female that came to the hospital for a UTI and developed NSVT. 2-D echo showed normal LVEF of 60%, mild mitral regurgitation, PAP 33, and trace PI. The patient is in no distress and respirations are nonlabored with improved air flow and no crackles. She is better and will be considered for PT evaluation soon. Her BP remains pretty elevated today. Suspect hypokalemia contributed to nonsustained VT, normal LV function. 1) UTI - stable 2) NSVT - with normal LVEF. Has not recurred after K was corrected. 3) HTN uncontrolled. - Pt was admitted on Metoprolol tartrate -> changed to Succinate and dose was increased - due to high BP will increase further - no need to use Succinate as pt LVEF is normal. - Continue ACEI - Recheck labs in the AM. 4) Anemia, mild will check basic workup. Rehabilitation versus fci being considered. Sepsis Assessment - Evaluation Sepsis screening result: No Definite Risk Hospital Course Summary Disclaimer: The visit summary below is not to be considered part of the above Progress Note. Hospital Course: 06/03/17- Admission Plan Admit patient to inpatient status under the care of Dr. Milligan for dizziness, acute hypoxia and acute kidney injury. Given acute dizziness. Will place patient on cardiac telemetry to monitor for dysrhythmias. Patient currently requiring 2 liters of oxygen by nasal cannula to maintain adequate saturations. Will wean down as able. Question of hypoxia is secondary to increased sedation. Given the patient started oxycodone for pain control today. He is currently not having any flank pain and feels that she possibly passed her renal calculi. Will avoid any opioids at this time and order Tylenol for pain control. Creatinine increased from 0.9 yesterday to 1.7 today. It does not appear that patient received any NSAIDs or other acute renal toxic medications. She does chronically take lisinopril which will be placed on hold at time of admission. We'll obtain a d-dimer to rule out pulmonary emboli. Given recent hypoxia. This is pending at time of admission. Normal saline at 100 ML per hour for gentle hydration. Monitor for fluid overload. Will continue with home medications including metoprolol 25 milligrams daily. Monitor blood pressures. Given that lisinopril is currently on hold. SCDs to bilateral lower extremity for DVT prophylaxis. May consider placing consult for PT and OT tomorrow. Given recent falls. Patient does request to be a do not resuscitate and this orders written Check CBC and BMP tomorrow morning to follow blood counts, renal function and electrolytes Discuss further orders and plan of care with attending, Dr. Milligan. At time of discharge medical care will return to primary care provider, Dr. Ida Tenorio 06/04/17 - Renal US pending, Health Services Information Specialist continues to be elevated. ECHO pending, Work on weaning down oxygen. 06/05/17- Replace potassium and magnesium. NSVT overnight. Continue to work on weaning down oxygen. Discuss with IRU for possible admission for ongoing strengthening
[2017-06-06] MEDS: SALINE FLUSH 10ml SYRINGE IVF PRN (21:00)
[2017-06-06] MEDS: Venlafaxine XR 37.5 MG CAPSULE (24hr) PO SCH (21:00)
[2017-06-07] MEDS: SALINE FLUSH 10ml SYRINGE IVF PRN ×2 (06:14→20:57)
[2017-06-07] MEDS: LISINOPRIL 40 MG TABLET PO SCH (08:38)
[2017-06-07] MEDS: Venlaflaxine XR 75 MG CAPSULE (24hr) PO SCH (08:38)
[2017-06-07] MEDS: ACETAMINOPHEN 500 MG TABLET PO PRN ×2 (08:38→21:00)
--- NOTE | 2017-06-07 12:25 | Progress Note ---
<Lorri Watts - Last Filed: 06/07/17 13:52> Subjective: Feeling better today, especially compared to how she felt when she came in. Notes left-sided lumbar pain but it's better with her special shoes on. She walked in the halls quite a bit this morning - no chest pain, dyspnea, palpitations, or weakness/dizziness. Objective Vital signs: Temperature 97.9 F 06/07/17 07:19 Pulse Rate 77 06/07/17 07:19 Respiratory Rate 18 06/07/17 07:19 Blood Pressure 168/89 H 06/07/17 07:19 Pulse Oximetry 93 06/07/17 07:19 Oxygen Delivery Method Room Air Oxygen Flow Rate 1 Weight: 84.4 kg - Constitutional Present: no acute distress, well nourished, well developed - Routine HEENT Exam Eye: Absent: conjunctival icterus ENT: Present: mucous membranes moist, oropharynx clear - Routine Respiratory Exam Present: CTA bilaterally, diminished air movement - Routine Cardiovascular Exam Present: RRR, S1, S2 - Routine Abdominal Exam Present: soft, normoactive bowel sounds, non distended, non tender - Routine Extremities Exam Present: no edema Comments: B/L SCDs - Routine Musculoskeletal Exam Musculoskeletal: Present: no clubbing or cyanosis, moving extremities well - Routine Skin Exam Present: intact, dry, warm - Routine Neurological Exam Present: alert, oriented X3, CN II-XII intact - Routine Psychiatric Exam Present: normal affect, normal thought process Results - Labs CBC & Chem 7: 06/07/17 03:56 06/07/17 03:56 Assessment and Plan (1) Hypoxia Current visit: Yes Status: Acute (2) Acute renal injury Current visit: Yes Status: Resolved (3) Dizziness Current visit: Yes Status: Acute (4) Acute respiratory failure with hypoxia Current visit: Yes Status: Resolved DVT Prophylaxis: SCD's Resuscitation Status: Do Not Resuscitate Assessment and Plan: Summary - Ms Ríos is a 87 YO female that came to the hospital for a UTI and developed NSVT. 2-D echo showed normal LVEF of 60%, mild mitral regurgitation, PAP 33, and trace PI. 1) NSVT - with normal LVEF. Has not recurred after K was corrected. 2) Hypokalemia - K down to 3.3 -give 40 mEq x1 now and start 20 mEq daily tomorrow. -start Aldactone 25 mg daily. -Suspect hypokalemia contributed to nonsustained VT, normal LV function. 3) Magnesium lower limits of normal -start MagOx daily 2) UTI - stable 3) HTN uncontrolled. -HTN + hypokalamia could be indicator of aldosterone abnormality - may consider ordering aldosterone as stand-alone test vs. renin-aldosterone ratio (both are sent to [facility]) -Metoprolol dose increased -Continue NATHALIE-I 4) Normocytic Anemia, mild and stable. 5) DC planning -Rehabilitation versus intermediate being considered. -PT/OT re-eval tomorrow am. - Time spent with patient 25 - 35 minutes Sepsis Assessment - Evaluation Sepsis screening result: No Definite Risk Hospital Course Summary Disclaimer: The visit summary below is not to be considered part of the above Progress Note. Hospital Course: 06/03/17- Admission Plan Admit patient to inpatient status under the care of Dr. Milligan for dizziness, acute hypoxia and acute kidney injury. Given acute dizziness. Will place patient on cardiac telemetry to monitor for dysrhythmias. Patient currently requiring 2 liters of oxygen by nasal cannula to maintain adequate saturations. Will wean down as able. Question of hypoxia is secondary to increased sedation. Given the patient started oxycodone for pain control today. He is currently not having any flank pain and feels that she possibly passed her renal calculi. Will avoid any opioids at this time and order Tylenol for pain control. Creatinine increased from 0.9 yesterday to 1.7 today. It does not appear that patient received any NSAIDs or other acute renal toxic medications. She does chronically take lisinopril which will be placed on hold at time of admission. We'll obtain a d-dimer to rule out pulmonary emboli. Given recent hypoxia. This is pending at time of admission. Normal saline at 100 ML per hour for gentle hydration. Monitor for fluid overload. Will continue with home medications including metoprolol 25 milligrams daily. Monitor blood pressures. Given that lisinopril is currently on hold. SCDs to bilateral lower extremity for DVT prophylaxis. May consider placing consult for PT and OT tomorrow. Given recent falls. Patient does request to be a do not resuscitate and this orders written Check CBC and BMP tomorrow morning to follow blood counts, renal function and electrolytes Discuss further orders and plan of care with attending, Dr. Milligan. At time of discharge medical care will return to primary care provider, Dr. Ida Tenorio 06/04/17 - Renal US pending, Computer Compositor continues to be elevated. ECHO pending, Work on weaning down oxygen. 06/05/17- Replace potassium and magnesium. NSVT overnight. Continue to work on weaning down oxygen. Discuss with IRU for possible admission for ongoing strengthening 06/06/17 - Metoprolol tartrate -> changed to Succinate and dose was increased - due to high BP will increase further - no need to use Succinate as pt LVEF is normal. Anemia, mild will check basic workup. 06/07/17 Hypokalemia - K down to 3.3 -give 40 mEq x1 now and start 20 mEq daily tomorrow. -start Aldactone 25 mg daily. -Suspect hypokalemia contributed to nonsustained VT, normal LV function. Magnesium lower limits of normal -start MagOx daily HTN uncontrolled-HTN + hypokalamia could be indicator of aldosterone abnormality - may consider ordering aldosterone as stand-alone test vs. renin- aldosterone ratio (both are sent to [facility]) <Yossi Jeff - Last Filed: 06/07/17 19:41> Objective Vital signs: Temperature 95.7 F L 06/07/17 15:27 Pulse Rate 73 06/07/17 15:47 Respiratory Rate 16 06/07/17 15:27 Blood Pressure 156/87 H 06/07/17 15:27 Pulse Oximetry 97 06/07/17 15:27 Oxygen Delivery Method Room Air Oxygen Flow Rate 1 Results - Labs CBC & Chem 7: 06/07/17 03:56 06/07/17 03:56 Assessment and Plan (1) Hypoxia Current visit: Yes Status: Acute (2) Acute renal injury Current visit: Yes Status: Resolved (3) Dizziness Current visit: Yes Status: Acute (4) Acute respiratory failure with hypoxia Current visit: Yes Status: Resolved Assessment and Plan: Pt was seen and examined with Lorri this AM, and I have discussed with her the plan of care and agree with the above physical exam. Pt has HTN and low K. An aldosterone level was requested. Her K is low again, so she will be replaced and observed due to previous NSVT. Anemia is better ( Probably was hemodiluted ?) Continue telemetry - will have to add aldactone pt is having hypokalemia, and is on no diuretics (is on ACEI which if any would increase K). Hospital Course Summary Disclaimer: The visit summary below is not to be considered part of the above Progress Note.
[2017-06-07] MEDS: SPIRONOLACTONE 25 MG TABLET PO SCH (14:08)
[2017-06-07] MEDS: MAGNESIUM OXIDE 400 MG TABLET PO SCH (14:08)
[2017-06-07] MEDS: Venlafaxine XR 37.5 MG CAPSULE (24hr) PO SCH (21:00)
[2017-06-08] MEDS: LISINOPRIL 40 MG TABLET PO SCH (08:59)
[2017-06-08] MEDS: SPIRONOLACTONE 25 MG TABLET PO SCH (08:59)
[2017-06-08] MEDS: MAGNESIUM OXIDE 400 MG TABLET PO SCH (08:59)
[2017-06-08] MEDS: Venlaflaxine XR 75 MG CAPSULE (24hr) PO SCH (08:59)
[2017-06-08 09:05] VITALS: BP 187/74; RESP 20; TEMP 97; O2SAT 95
[2017-06-08] MEDS ORDERED: MAGNESIUM SULFATE 1gm PREMIX 1 GM/100 ML BAG IV ONE (10:40)
[2017-06-08 10:46] VITALS: PULSE 94
--- NOTE | 2017-06-08 13:12 | Discharge Instructions ---
Discharge Plan - Med Rec/Dispo Referrals/Follow Up: Ida Tenorio, [Family Provider] - [place] Instructions: Hypoxia (GEN) Additional Instructions: appoitment with Dr Orona on 07/15 at 2:15 on [facility]. New Meds upon transfer to IRU: Spironolactone KDur MagOx Metoprolol Tartrate started and metoprolol succ. dc'd. She will need Rx of these new meds at [place] from [facility]U Prescriptions: New Metoprolol Tartrate [Lopressor] 50 mg PO BIDWM tablet Potassium Chloride ER Tab [K-Dur] 20 meq PO BIDWM tablet Saline Flush [IV Flush] 10 - 80 ml IVF PRN PRN syringe PRN Reason: Flushing Magnesium Oxide [Magox] 800 mg PO DAILY tablet Ondansetron Inj [Zofran] 4 mg IVP Q6H PRN vial PRN Reason: Nausea &/Or Vomiting Spironolactone [Aldactone] 25 mg PO DAILY tablet Continue Acetaminophen [Tylenol Extra Strength] 1,000 mg PO TID PRN #0 PRN Reason: PAIN Alpine-3 Fatty Acids [Alpine-3] 1,000 mg PO DAILY Chromium Picolinate 500 mcg PO BID Oxycodone HCl [Oxaydo] 5 mg PO Q6HPRN PRN #20 tablet.orl PRN Reason: Pain Dicyclomine [Bentyl] 10 mg PO QID PRN PRN Reason: Prn Orders Turmeric Root Extract [Turmeric] 500 mg PO DAILY Venlafaxine HCl [Effexor Xr] 37.5 mg PO HS #0 Venlafaxine HCl [Effexor Xr] 75 mg PO DAILY #0 Lisinopril 40 mg PO DAILY #0 tab Multivitamin [One Daily Multivitamin] 1 tab PO DAILY Alfuzosin [Uroxatral] 10 mg PO DAILY Discontinued Metoprolol Succinate 25 mg PO DAILY #0 tab - Disposition 62 To [facility] [facility]
--- NOTE | 2017-06-08 13:27 | Discharge Summary ---
<Lorri Watts Alyson - Last Filed: 06/08/17 13:24> Discharge Information Date of admission: 06/03/17 18:20 Anticipated date of discharge: 06/08/17 Attending Physician: MD Francesca Burrell MD Primary care physician: Ida Tenorio DO Consults: IRU Screening [Inpatient Rehab Screening] [CONS] Routine Case Management Consult [Case Management Consult] [CONS] Routine - Procedures Procedures: Date of Exam: 06/04/17 Type of Exam(s): US echo doppler complete Left atrial dimension is normal. Left ventricular end-diastolic dimension is normal. Left ventricular wall thickness is at the upper limits of normal. LV systolic function is normal with ejection fraction of about 60%. Right atrium is normal. Right ventricle is normal. Aortic root dimension is normal. Mitral valve is morphologically normal with mild mitral regurgitation. Aortic valve appears to be normal. Tricuspid valve shows mild tricuspid regurgitation with estimated pulmonary artery systolic pressure of 33. Pulmonary valve shows trace of pulmonary insufficiency. There is no pericardial effusion. IMPRESSION 1. Normal LV systolic function with ejection fraction of about 60%. 2. Mild mitral regurgitation. 3. Mild tricuspid regurgitation with estimated pulmonary artery systolic pressure of 33. 4. Trace of pulmonary insufficiency. Date of Exam: 06/04/17 PROCEDURE: US renal BI: FINDINGS: Both kidneys are present with normal cortical thickness and echogenicity. Mild right hydronephrosis. Small bilateral renal stones. No significant left hydronephrosis. No renal mass lesion seen. Right kidney measures 12.8 cm in length. Left kidney measures 11.2 cm in length. Impression: Bilateral nephrolithiasis with mild right hydronephrosis. - Laboratory Labs: 06/07/17 03:56 06/08/17 07:48 - Radiology Radiology: Date of Exam: 06/03/17 PROCEDURE: XR chest 1V: Findings: No focal consolidative pneumonia. There is prominence to the right hilar contour with a convex margin. This may be artifactual or due to pulmonary vascular prominence as this appearance is not seen on the comparison KUB from yesterday. No pleural effusion or pneumothorax. Cardiac silhouette is mildly enlarged. Pulmonary vascularity appears normal. Impression: 1. No pneumonia. 2. Enlarged cardiac silhouette which could be due to cardiomegaly or pericardial effusion. 3. Rounded prominence of the right hilar contour. Recommend comparison with any available prior chest x-rays. If comparisons are unavailable short-term follow-up radiographs or chest CT could be performed for additional evaluation. Date of Exam: 06/03/17 PROCEDURE: CT head/brain wo con: FINDINGS: The ventricles are of normal size, shape, and configuration for the patient's age. There is no evidence of acute intracranial hemorrhage, midline displacement, or mass effect. There are scattered areas of low attenuation in the white matter which most likely represent changes of chronic microvascular ischemia. The CT attenuation of the brain parenchyma is otherwise normal within the cerebellum, brain stem, and cerebral hemispheres. The tympanic cavities and mastoid air cells are free of appreciable disease. There are no definite fractures of the skull base, calvarium, or visualized portion of the midface. IMPRESSION: No CT evidence of acute traumatic intracranial injury. Date of Exam: 06/05/17 PROCEDURE: CHEST 2-VIEWS UPRIGHT (PA & LAT) FINDINGS: Lungs are hypoinflated with mild bronchovascular crowding. No consolidative pneumonia, gross pleural effusion or pneumothorax. Cardiac silhouette is mildly enlarged but unchanged. There is less prominence to the right hilar contour on today's study. Pulmonary vascularity appears normal. Impression: Mild hypoinflation without focal pneumonia or congestive failure. History of Present Illness HPI: Patient is an 87-year-old female who was seen in the emergency room yesterday [] and diagnosed with a 6 millimeter meter renal calculi in the right ureter. She was sent home on oxycodone for pain control. Today she was at home where she resides independently with her son. She states that she had taken an oxycodone prior to becoming dizzy and falling. She reports that she stepped down on a stair and then fell to her knees. She states that she was able to crawl across to her carpet and returned herself on in [place] time she contacted her son who helped her up. Due to this acute event. She was brought to the emergency room for further evaluation. Upon arrival to the emergency room she was found to be hypoxic with room air saturations of 82%. Yesterday her sats were 94%. She was placed on oxygen to maintain adequate saturations. A chest x- ray was obtained today does reveal cardiomegaly as well as some prominence in the right hilar region. The WBC count today was slightly elevated at 11.4, up from 9.9 yesterday. Neutrophils were up to 91%. Remaining CBC was unremarkable. Renal function was found to be elevated, BUN of 29 and creatinine of 1.7. Creatinine yesterday was 0.9. LFTs were normal. Remaining electrolytes unremarkable. An ABG was obtained, given her acute hypoxia - PH 7.379, pCO2 43, pO2 71. Given her continued hypoxia, accompanied with increase in renal function , the hospitalist services were contacted for inpatient admission for further evaluation and treatment. Objective Vital signs: Temperature 97.0 F 06/08/17 08:00 Pulse Rate 94 06/08/17 08:00 Respiratory Rate 20 06/08/17 08:00 Blood Pressure 187/74 H 06/08/17 08:00 Pulse Oximetry 95 06/08/17 08:00 Oxygen Delivery Method Room Air Oxygen Flow Rate 1 Rhythm: Normal Sinus Rhythm Weight: 83.7 kg - Constitutional Present: no acute distress, well nourished, well developed - Routine HEENT Exam Head: Present: normocephalic ENT: Present: mucous membranes moist, oropharynx clear - Routine Respiratory Exam Present: CTA bilaterally - Routine Cardiovascular Exam Present: RRR, S1, S2 - Routine Abdominal Exam Present: soft, normoactive bowel sounds, non distended, non tender - Routine Extremities Exam Present: no edema, pulses intact, normal capillary refill - Routine Musculoskeletal Exam Musculoskeletal: Present: no clubbing or cyanosis, moving extremities well - Routine Skin Exam Present: intact, dry, warm - Routine Neurological Exam Present: alert, oriented X3, CN II-XII intact - Routine Psychiatric Exam Present: normal affect, normal thought process Hospital Course This is a general summary of the patient's hospital course. For more details refer to the complete medical record. Hospital course: Mrs. Adler was admitted on 06/03/17 for LANNY, acute hypoxia, and dizziness. Code status: DNR. LANNY (creatine peaked at 1.9 then trended down to normal range) - renal u/s obtained, showing bilateral nephrolithiasis with mild right hydronephrosis. Echo was also done: EF was preserved. Metoprolol succinate was changed to metoprolol tartrate since she did not have CHF. Lisinopril initially was held but later resumed as renal function rebounded. Though she was previously dx with renal calculi, she did not complain of flank pain. By day of discharge her creatinine was 0.7. Hypoxia - required low-flow oxygen initially but was able to be weaned off as narcotics were withheld. Dizziness - placed on telemetry. Admission EKG showed sinus with occasional PACs. Symptoms rapidly resolved shortly after admission. NSVT - occurred on 06/05/17. She was found to be both hypokalemic and hypomagnesemia, which most likely contributed to NSVT. Electrolytes were replaced, but she became hypokalemic again on 06/07/17. Additional replacement for both electrolytes was ordered, and spironolactone was also initiated. Her NATHALIE-I was continued as well. She remained in NSR after the one-episode of NSVT. HTN, uncontrolled - metoprolol tartrate dose was increased. Aldactone added, as noted. Aldosterone level ordered, PENDING at time of DC. Acute debility - Complained of lumbar pain which resolved when she wore her shoes. She did fairly well with PT on 06/05/17 but when she was assessed on , her gait was unsteady and PT/OT felt she needed additional inpatient therapy to improve balance, safety, and endurance. She was discharged from acute medical floor on 06/08/17. She was accepted to IRU for strengthening and for ongoing monitoring of her hypokalemia/hypomagnesemia and ongoing risk for NSVT. In addition, she is now at risk for hyperkalemia while on increased KDur, plus spironolactone, and NATHALIE-I. She will need Rx for Metoprolol tartrate, Spironolactone, KDur, and MagOx at time of discharge from IRU, since these medications were simply continued from her inpatient medication list. Additionally, since she had opioid induced hypoxia at admission , would recommend stopping oxycodone. Recommend F/U with Dr. Tenorio within 1 week of DC from IRU. The hospitalist team will continue to follow while she is in IRU , monitoring heart rhythm, electrolytes/renal function, and BP. Time spent with patient: discharge greater than 30 minutes DVT Prophylaxis: SCD's Discharge Plan - Med Rec/Dispo Referrals/Follow Up: Ida Tenorio DO [Family Provider] - Monica Instructions: Hypoxia (GEN) Additional Instructions: appoitment with Dr Orona on 07/15 at 2:15 on Mobile. New Meds upon transfer to IRU: Spironolactone KDur MagOx Metoprolol Tartrate started and metoprolol succ. dc'd. She will need Rx of these new meds at AL from IRU Prescriptions: New Metoprolol Tartrate [Lopressor] 50 mg PO BIDWM tablet Potassium Chloride ER Tab [K-Dur] 20 meq PO BIDWM tablet Saline Flush [IV Flush] 10 - 80 ml IVF PRN PRN syringe PRN Reason: Flushing Magnesium Oxide [Magox] 800 mg PO DAILY tablet Ondansetron Inj [Zofran] 4 mg IVP Q6H PRN vial PRN Reason: Nausea &/Or Vomiting Spironolactone [Aldactone] 25 mg PO DAILY tablet Continue Acetaminophen [Tylenol Extra Strength] 1,000 mg PO TID PRN #0 PRN Reason: PAIN [place]-3 Fatty Acids [[place]-3] 1,000 mg PO DAILY Chromium Picolinate 500 mcg PO BID Oxycodone HCl [Oxaydo] 5 mg PO Q6HPRN PRN #20 tablet.orl PRN Reason: Pain Dicyclomine [Bentyl] 10 mg PO QID PRN PRN Reason: Prn Orders Turmeric Root Extract [Turmeric] 500 mg PO DAILY Venlafaxine HCl [Effexor Xr] 37.5 mg PO HS #0 Venlafaxine HCl [Effexor Xr] 75 mg PO DAILY #0 Lisinopril 40 mg PO DAILY #0 tab Multivitamin [One Daily Multivitamin] 1 tab PO DAILY Alfuzosin [Uroxatral] 10 mg PO DAILY Discontinued Metoprolol Succinate 25 mg PO DAILY #0 tab - Disposition 62 To [facility] [place] [facility] <Yossi Jeff - Last Filed: 06/08/17 15:18> Discharge Information Date of admission: 06/03/17 18:20 Attending Physician: Yossi Jeff MD Primary care physician: Ida Tenorio DO Consults: 06/04/17 IRU Screening [Inpatient Rehab Screening] [CONS] Routine 06/04/17 12:02 Case Management Consult [Case Management Consult] [CONS] Routine Reason For Exam: SOCIAL SERVICE CONSULT - Laboratory Labs: 06/07/17 03:56 06/08/17 07:48 Objective Vital signs: Temperature 97.0 F 06/08/17 08:00 Pulse Rate 94 06/08/17 08:00 Respiratory Rate 20 06/08/17 08:00 Blood Pressure 187/74 H 06/08/17 08:00 Pulse Oximetry 95 06/08/17 08:00 Oxygen Delivery Method Room Air Oxygen Flow Rate 1 Hospital Course This is a general summary of the patient's hospital course. For more details refer to the complete medical record. Hospital course: Summary - Ms Adler is a 87 YO female that came to the hospital for a UTI and developed NSVT. 2-D echo showed normal LVEF of 60%, mild mitral regurgitation, PAP 33, and trace PI. Her BP has been high and her K has been low, despite being on ACEI + Aldactone. She needs close monitoring as she is at risk of hypokalemia - and NSVT and also at risk of hyperkalemia and she is being treated aggresively for her low K. 1) NSVT - with normal LVEF, probably due to low K. 2) Hypokalemia - - Suspect hypokalemia contributed to nonsustained VT, normal LV function. - Continue ACEI, Aldactone, and K supplements if needed. - Watch closely for hyperkalemia. 3) Magnesium lower limits of normal - On PO Magnesium. 2) UTI - stable 3) HTN with better control, still with elevated SBP. - Continue ACEI, BB, Aldactone. 4) Normocytic Anemia, mild and stable. Pt will be transferred to IRU and will be folllowed closely by us. Discharge Plan - Med Rec/Dispo
== END 2017-06-08 14:10 | DRG 682 ==
LOC: ED 15:19 → MED 18:20
PROVIDERS: ADMIT Internal Medicine; ATTEND Internal Medicine

== ENCOUNTER 2017-06-08 14:15 | Inpatient (IN) ==
[2017-06-08 14:57] VITALS: BMI 29.9
--- NOTE | 2017-06-08 15:00 | IRU History & Physical Report ---
[facility] Date: 442 Chief complaint: Heart beating fast HPI: Ms. Adler is a very pleasant 87-year-old white female who lives essentially by herself at least during the daytime in her own home. Toward evening her son comes home and he does stay with her at night. The patient was initially admitted to acute care on 06/03/2017. She had been seen in the emergency department prior to that with right anterior lower abdominal pain. She was noted to have a 6 mm renal calculus in the right ureter. She was sent home with oxycodone. The patient reports a transient spell of lightheadedness and dizziness where she felt like she was going to pass out. This was all she was at home the same day she went to the emergency department. She is not certain whether this occurred prior to the emergency department or after the emergency department. It was not clear whether she had taken a pain pill prior to that or not. However, the next day she apparently did lose her balance and fell. She landed on her "bottom" and still has some pain in that location. She did not lose consciousness this time nor did she have any head trauma. The patient was then admitted to acute care. She was treated with IV fluids. There was evidence of acute kidney injury with creatinine climbing to 1.9 but this is now trending toward normal. She is believes that she has passed the stone although did not really identify a specific stone. There was no surgical intervention. She has a history of at least 10 kidney stones that she recalls. She has undergone lithotripsy on at least 2 occasions but has never had open removal or other surgery. In addition, during her acute hospital stay she was noted to have nonsustained ventricular tachycardia. Her potassium had been low. It remains low at 3.3. Her medications have been adjusted in this regard. She has had no further episodes of ventricular tachycardia. Her echocardiogram is essentially normal with an ejection fraction around 60%. The patient did require low flow oxygen initially. She did have acute respiratory failure with hypoxemia. That has improved and may have been related to pain medication. Finally, from a medical standpoint she has hypertension. Blood pressure has not been well controlled. Her metoprolol tartrate dose was increased and Aldactone has been added. However blood pressure remains elevated. Medical reason for stay on the rehabilitation unit includes current hypokalemia with recent history of ventricular tachycardia and episode of dizziness and lightheadedness at home which may or may not be related. She is now at risk for hyperkalemia because of an increased dose of potassium orally plus spironolactone and an NATHALIE inhibitor. From a therapy standpoint, she lived independently at home by herself during the daytime and with her son at night. She was moderately independent for walking and independent for transfers at home. She used a quad cane at home and now is using a front-wheeled walker. She was moderately independent for stairs at home. Here in the rehabilitation unit she is maximum assist for transfers from bed to chair, minimal assistance for toilet transfer and total assistance for stairs. She was able to walk 175 feet with minimal assistance. At home, the patient does have 2 steps getting into her home. The following medical conditions are noted and require physician monitoring and treatment. 1. Hypokalemia with new meds and risk for hyperkalemia 2. Uncontrolled hypertension 3. Recent non-sustained ventricular tachycardia. The following therapies will be needed: 1. Physical therapy: for transfers and ambulation and stairs. 2. Occupational therapy: for ADL's and transfers. 3. Dietitian: for instruction regarding appropriate potassium intake. 4. Medical management: for the above conditions. 5. 24 hour Rehabilitation Nursing to monitor and address the following: hypertension, risk for hyperkalemia and recurrent non-sustained ventricular tachycardia. Review of Systems - Constitutional Constitutional: Present: fatigue - EENMT Eyes: Absent: blurry vision, change in vision, diplopia Ears: Absent: ear discharge, ear pain Balance: Absent: vertigo - Cardiovascular Cardiovascular: Present: dyspnea on exertion. Absent: chest pain, syncope, orthopnea Rhythm: Present: regular rhythm Vascular: Absent: intermittent claudication - Respiratory Respiratory: Present: dyspnea, dyspnea on exertion. Absent: cough, wheezing, pain on inspiration - Gastrointestinal Gastrointestinal: Present: constipation (Pt reports irritable bowel syndrome with three stools every morning. ), diarrhea. Absent: abdominal pain, change in bowel habits - Genitourinary Genitourinary: Absent: dysuria, flank pain - Musculoskeletal Musculoskeletal: Absent: back pain - Neurological Neurological: Present: frequent falls. Absent: confusion - Psychiatric Psychiatric: Absent: anxiety, depression PFSH Patient Stated Medical History Cataracts Yes: REMOVED Dental Problems Yes: DENTURES Hypertension Yes Hx Kidney Stones Yes Osteoarthritis Yes Shingles Yes Depression Yes: 1959' Post Menopausal Yes Medical History Updates: HTN. HL. Depression Surgical History: Appendectomy - as a child. Tonsillectomy - as a child. Hernia repair - . Hysterectomy - 1965. Cataracts - 2013. Carpal tunnel release. cholecystectomy - . colonoscopy 10/18/2013. Hammer toe surgery. Multiple lithotripsy - Social History Smoking status: Never smoker Substance use type: does not use Alcohol intake: never Alcohol intake frequency: does not drink Current occupational status: retired Current residence: Apartment/Private Home Medications Home Medications Medication Instructions Recorded Confirmed Type Venlafaxine HCl [Effexor Xr] 37.5 mg PO HS #0 03/23/10 06/03/17 History Venlafaxine HCl [Effexor Xr] 75 mg PO DAILY #0 03/23/10 06/03/17 History Acetaminophen [Tylenol Extra 1,000 mg PO TID PRN #0 04/12/15 06/03/17 History Strength] Lisinopril 40 mg PO DAILY #0 tab 08/31/16 06/03/17 History Chromium Picolinate 500 mcg PO BID 06/02/17 06/03/17 History Multivitamin [One Daily 1 tab PO DAILY 06/02/17 06/03/17 History Multivitamin] [place]-3 Fatty Acids [[place]-3] 1,000 mg PO DAILY 06/02/17 06/03/17 History Alfuzosin [Uroxatral] 10 mg PO DAILY 06/03/17 06/03/17 History Dicyclomine [Bentyl] 10 mg PO QID PRN 06/03/17 06/03/17 History Turmeric Root Extract [Turmeric] 500 mg PO DAILY 06/03/17 06/03/17 History Allergies Allergy/AdvReac Type Severity Reaction Status Date / Time phenazopyridine Allergy Mild Verified 06/03/17 15:50 amoxicillin Allergy Unknown Verified 06/03/17 15:50 ampicillin Allergy Unknown Verified 06/03/17 15:50 atorvastatin Allergy Unknown rash Verified 06/03/17 15:50 azithromycin Allergy Unknown Verified 06/03/17 15:50 benzonatate Allergy Unknown Verified 06/03/17 15:50 cefaclor Allergy Unknown Verified 06/03/17 15:50 erythromycin base Allergy Unknown Verified 06/03/17 15:50 fexofenadine Allergy Unknown Verified 06/04/17 13:35 meloxicam Allergy Unknown Verified 06/03/17 15:50 morphine Allergy Unknown NAUSEA Verified 06/03/17 15:50 naproxen Allergy Unknown Verified 06/04/17 13:34 Penicillins Allergy Unknown Verified 06/03/17 15:50 rofecoxib Allergy Unknown Verified 06/03/17 15:50 Sulfa (Sulfonamide Allergy Unknown Verified 06/03/17 15:50 Antibiotics) albuterol AdvReac Unknown Verified 06/04/17 13:34 Exam - Constitutional Present: no acute distress, well nourished, well developed - Routine HEENT Exam Head: Present: normocephalic Eye: Present: EOMI, PERRL ENT: Present: mucous membranes moist, oropharynx clear - Routine Neck Exam Present: supple, full ROM - Routine Respiratory Exam Present: dyspnea, CTA bilaterally. Absent: accessory muscle use, decreased breath sounds, wheezes - Routine Cardiovascular Exam Present: RRR, S1, S2, no murmur - Routine Abdominal Exam Present: soft, normoactive bowel sounds, non distended, non tender - Routine Extremities Exam Absent: cyanosis, edema - Routine Skin Exam Present: intact. Absent: erythema - Routine Neurological Exam Present: alert, oriented X3, CN II-XII intact - Routine Psychiatric Exam Present: normal affect, normal thought process, cooperative, good insight, good judgment, anxious (she does display a mild degree of anxiety during the interview.) Sepsis Assessment - Evaluation Sepsis screening result: No Definite Risk IRU A/P (1) Acute respiratory failure with hypoxia Current visit: No Status: Resolved Patient experienced acute respiratory failure with hypoxemia early on in the acute care stay. She is still at risk for this with use of pain medications etc. She will be monitored for her oxygen saturations. (2) Hypokalemia Current visit: Yes Status: Acute Patient continues to be hypokalemic with a potassium of 3.3. She is on supplemental potassium. Medications have been modified and she is now on aldosterone and an NATHALIE inhibitor. She is at risk for hyperkalemia and her potassium will be monitored carefully by the medical team. (3) Ventricular tachycardia, non-sustained Current visit: Yes Status: Acute She has a recent history of nonsustained ventricular tachycardia. This may be related to the potassium. In addition she had an episode of dizziness/ lightheadedness at home which was from her fall. Whether this is related is not clear at this time. Her ejection fraction is normal but she will be monitored with telemetry while on the acute rehabilitation unit. (4) Acute renal injury Current visit: No Status: Resolved Her creatinine did jump up to 1.9. It is trending toward normal. However this will be monitored particular in view of the medications that she is on. (5) Renal calculi Current visit: Yes Status: Acute She does have acute on chronic renal calculi. She is at risk for recurrence of obstruction. Sonogram did demonstrate bilateral hydronephrosis. (6) Debility Current visit: Yes Status: Acute Continues to be debilitated from her recent episode of renal calculi and the fall at home. She requires physical therapy and occupational therapy as well as medical management for these conditions. (7) Benign essential hypertension Current visit: Yes Status: Acute Patient's blood pressure continues to be elevated despite recent medication adjustment. This will be monitored and her medications will be adjusted as needed. DVT Prophylaxis: SCD's, Lovenox Resuscitation Status: Do Not Intubate - Course Hospital Course: Christopher Rivera MD: - Interventions to Obtain Goals Goals Progress/Modifications: The goal for the patient is to have no further episodes of ventricular tachycardia and for her potassium to be returned to normal. In addition the goal is to normalize her blood pressure and to allow her to return home safely for independent living.
[2017-06-08] MEDS ORDERED: ONDANSETRON 4 MG/2 ML INJECTION IVP PRN (15:14)
[2017-06-08] MEDS ORDERED: Oxycodone *IR* 5 MG TABLET PO PRN (15:14)
[2017-06-08] MEDS ORDERED: DICYCLOMINE 10mg CAPSULE PO PRN (15:14)
--- NOTE | 2017-06-08 15:21 | Progress Note ---
Progress Note: I discussed with Mrs. Adler her desire regarding resuscitation in the event of an arrest. She states that she does not wish to be on the ventilator particularly "if things are bad" and if there is no hope. She is willing to undergo CPR if it is brief and there is a possibility of recovery. For this reason I made her a "DO NOT INTUBATE" but otherwise resuscitate patient.
--- NOTE | 2017-06-08 15:24 | IRU 24Hr Post Admit Eval ---
24 Hr Post Admission Physical - Relevant Changes Relevant Changes: No Reviewed: I have reviewed the patient's information and concur with the finding and results of the pre-admission screen. Certification: I certify the patient for rehabilitation. - Patient Condition (1) Acute respiratory failure with hypoxia Status: Resolved Code(s): J96.01 - Acute respiratory failure with hypoxia Classification: Other Contributing Factor Additional Information: Patient experienced acute hypoxemic respiratory failure while on acute, possibly related to pain medication usage. She will be observed for recurrence of this while on acute rehabilitation. (2) Hypokalemia Status: Acute Code(s): E87.6 - Hypokalemia Classification: Present on IRF Admission, IRF Tx That Should Address Diagnosis, Diagnosis Requiring Medical Follow Up (3) Ventricular tachycardia, non-sustained Status: Acute Code(s): I47.2 - Ventricular tachycardia Classification: Diagnosis Requiring Medical Follow Up, Other Contributing Factor Additional Information: Patient has had recent ventricular tachycardia, nonsustained. Her ejection fraction is normal. However we will monitor with telemetry. (4) Acute renal injury Status: Resolved Code(s): N17.9 - Acute kidney failure, unspecified Classification: Diagnosis Requiring Medical Follow Up Additional Information: In view of new medications including spironolactone, NATHALIE inhibitor should and and potassium, we will monitor for her kidney function. Potassium is no trending toward normal. (5) Renal calculi Status: Acute Code(s): N20.0 - Calculus of kidney Classification: Present on IRF Admission, Diagnosis Requiring Medical Follow Up (6) Debility Status: Acute Code(s): R53.81 - Other malaise Classification: Present on IRF Admission, IRF Tx That Should Address Diagnosis, Diagnosis Requiring Medical Follow Up (7) Benign essential hypertension Status: Acute Code(s): I10 - Essential (primary) hypertension Classification: Present on IRF Admission, IRF Tx That Should Address Diagnosis, Diagnosis Requiring Medical Follow Up - Prior Functional Status Lives With: Children Residence Type: Apartment/Private Home Assitive Devices: Front Wheeled Walker Prior Functional Status: Indep. at home or school, Used assistive device - Current Functional Status Failed Alternative Therapy: Arrived from Acute Care Patient Requirements: The patient requires oversight by rehabilitation physician to manage their rehabilitation treatment plan and multidisciplinary approach to care that can only be provided in an IRF and requires a multidisciplinary approach to care, provided by professional PTs, OTs, STs, dieticians, RTs, rehabilitation nurses and is not available in lesser levels of care. Limitiations Req: Mobility Impairment, ADL Impairment Physical Therapy Minutes: 90 Occupational Therapy Minutes: 90 Therapy: The patient is to receive therapy at least 5 days a week. - Complications/Comorbidities Barriers to Discharge: Weakness, Balance, Endurance - Plan to Avoid Complications Plan to Avoid Complications: The patient cannot receive this care in a lesser intensive setting such as [facility] or Outpatient Therapy due to the patient requiring the following : recent V-tach, hypokalemia, new medications started that place patient at increased risk of hyperkalemia. The patient will require an intensive, individualized plan of care to involve physical therapy 90 minutes daily, 5 days weekly, occupational therapy, 90 minutes daily, 5 days weekly, dietitian, rehabilitation nursing on a 24-hour basis and physician management at least 3 days weekly. .
[2017-06-08] MEDS: SALINE FLUSH 10ml SYRINGE IV PRN (17:56)
[2017-06-08] MEDS: CHROMIUM PICOLINATE 500 MCG PO SCH (20:06)
[2017-06-08] MEDS: Venlafaxine XR 37.5 MG CAPSULE (24hr) PO SCH (22:02)
[2017-06-08] MEDS: ACETAMINOPHEN 500 MG TABLET PO PRN (23:22)
[2017-06-09] MEDS: ALFUZOSIN ER 10 MG TABLET PO SCH (08:52)
[2017-06-09] MEDS: OMEGA-3 ACID ESTERS 1 GM CAPSULE PO SCH (08:52)
[2017-06-09] MEDS: ENOXAPARIN 40 MG/0.4 ML INJECTION SQ SCH (08:52)
[2017-06-09] MEDS: Venlaflaxine XR 75 MG CAPSULE (24hr) PO SCH ×2 (08:53→20:25)
[2017-06-09] MEDS: LISINOPRIL 40 MG TABLET PO SCH (08:53)
[2017-06-09] MEDS: SALINE FLUSH 10ml SYRINGE IV PRN ×2 (08:53→17:52)
[2017-06-09] MEDS: MAGNESIUM OXIDE 400 MG TABLET PO SCH (08:53)
[2017-06-09] MEDS: SPIRONOLACTONE 25 MG TABLET PO SCH (08:53)
[2017-06-09] MEDS: MULTI-VITAMIN + MINERAL TABLET PO SCH (08:55)
--- NOTE | 2017-06-09 10:41 | IRU Progress Note ---
- Subjective/Serverity of Illness Zak was interviewed and examined in her room after she had completed therapy this morning. She is tolerating therapy well. There is some reduced endurance but overall tolerates well. Denies overt shortness of breath although does have some tachypnea with activity. Denies any chest pains. Review of telemetry strips from last 24 hours reveals normal sinus rhythm without evidence of ventricular tachycardia. Her potassium is now normal at 4.1. She is on several medications which can affect this we will continue to monitor her BMP. With regard to therapy, she wondered if she should have both a cane and a walker. I will discuss this with therapy. Exam Vital Signs: Temperature 97.8 F 06/09/17 09:55 Pulse Rate 91 06/09/17 09:00 Respiratory Rate 18 06/09/17 08:30 Blood Pressure 146/87 H 06/09/17 08:30 Pulse Oximetry 93 06/09/17 08:30 Oxygen Delivery Method Room Air Height: 1.71 m Weight: 88 kg Body Mass Index: 29.9 - Constitutional Present: no acute distress Comments: The patient is awake, alert and oriented and in no acute distress. Pupils are equal. The neck is supple. Chest: Clear to auscultation bilaterally. Cor: RR with no shar, click nor murmur Abd: soft with normo-active bowel sounds. There are no masses, no tenderness and no guarding. Extremities: No edema is noted. There are good pulses in both ankles. No cyanosis is present. - Routine HEENT Exam Head: Present: normocephalic Eye: Present: EOMI, PERRL - Routine Neck Exam Present: supple, full ROM - Routine Respiratory Exam Present: CTA bilaterally - Routine Cardiovascular Exam Present: RRR, S1, S2, no murmur - Routine Abdominal Exam Present: soft, normoactive bowel sounds, non distended, non tender - Routine Extremities Exam Present: no edema, non tender - Routine Neurological Exam Present: alert, oriented X3, CN II-XII intact - Routine Psychiatric Exam Present: normal affect, normal thought process, cooperative, good insight, good judgment Results IRU - Labs Labs: Reviewed labs with potassium normalized at 4.1. Creatinine is normal as well. Reviewed telemetry strips. Sinus mechanism throughout. Sepsis Assessment - Evaluation Sepsis screening result: No Definite Risk IRU A/P (1) Hypokalemia Current visit: Yes Status: Resolved She is no longer hypokalemic. However she is on several medications that will affect her potassium and for this reason requires daily laboratory monitoring. (2) Ventricular tachycardia, non-sustained Current visit: Yes Status: Acute Telemetry reveals no further episodes of ventricular tachycardia. (3) Renal calculi Current visit: Yes Status: Acute She denies any pain with regard to renal calculi. However does complain of left buttock pain where she fell at home. (4) Debility Current visit: Yes Status: Acute (5) Benign essential hypertension Current visit: Yes Status: Acute Per medical team. DVT Prophylaxis: SCD's, Lovenox Resuscitation Status: Do Not Intubate - Course Hospital Course: Christopher Rivera MD: 06/09/17 10:41 Continues to progress with therapy. Complains of left buttock pain where she fell at home. Telemetry shows normal sinus mechanism without recurrence of ventricular tachycardia. Potassium normalized. - Interventions to Obtain Goals PT Treatment Plan: Balance/Proprioception, Functional Activities, Gait Training , Patient/Family Education, Therapeutic Exercise
[2017-06-09] MEDS: CHROMIUM PICOLINATE 500 MCG PO SCH (11:43)
[2017-06-09] MEDS: TURMERIC ROOT EXTRACT 500 MG PO SCH (11:43)
--- NOTE | 2017-06-09 11:57 | History & Physical Report ---
<Lorri Watts - Last Filed: 06/09/17 12:51> History of Present Illness Date: 06/09/17 Chief complaint: "sore behind" HPI: Zak Adler is being seen in consultation from Dr. Rivera for medical management of acute kidney injury, hypoxia, nonsustained V. tach, and electrolyte abnormalities. She was hospitalized from 06/03 through 06/08, and discharged to IRU for strengthening and ongoing monitoring of electrolytes and heart rhythm. She was seen in the morning of 06/09/17. She was doing quite well and review of systems was almost entirely negative with the exception of having used "sore behind" from her recent fall prior to hospitalization. She has been ambulating well with a walker. She denies any shortness of breath or chest pain. No cough or cold. No fevers, chills, weakness, dizziness or lightheadedness. She rested well last night. She denies any abdominal pain or GI complaints. She has been urinating without complaints. Her bowels have been moving. No leg swelling. Review of Systems Comprehensive ROS: completed and no additional positive findings except those as stated - Musculoskeletal Musculoskeletal: Present: other (buttock pain from recent fall) [facility] Patient Stated Medical History Cataracts Yes: REMOVED Dental Problems Yes: DENTURES Hypertension Yes Constipation No Hx Incontinence No Hx Kidney Stones Yes Hx Renal Disease Yes Osteoarthritis Yes Shingles Yes Other Yes: osteoporosis, arthritis, hammer toe surgery , multiple lithotripsy Depression Yes: 1959'S Post Menopausal Yes Medical History Updates: HTN. HL. Depression Surgical History: Appendectomy - as a child. Tonsillectomy - as a child. Hernia repair - . Hysterectomy - 1965. Cataracts - 2013. Carpal tunnel release. cholecystectomy - . colonoscopy 10/18/2013. Hammer toe surgery. Multiple lithotripsy Family History: Mother in 7 of brain cancer Father had heart problems and from emphysema secondary to smoking. Son had kidney stones. One child in 1960 - Social History Smoking status: Never smoker Substance use type: does not use Current residence: Apartment/Private Home Medications Home Medications Medication Instructions Recorded Confirmed Type Venlafaxine HCl [Effexor Xr] 37.5 mg PO HS #0 03/23/10 06/08/17 History Venlafaxine HCl [Effexor Xr] 75 mg PO DAILY #0 03/23/10 06/08/17 History Acetaminophen [Tylenol Extra 1,000 mg PO TID PRN #0 04/12/15 06/08/17 History Strength] Lisinopril 40 mg PO DAILY #0 tab 08/31/16 06/08/17 History Chromium Picolinate 500 mcg PO BID 06/02/17 06/08/17 History Multivitamin [One Daily 1 tab PO DAILY 06/02/17 06/08/17 History Multivitamin] Fithian-3 Fatty Acids [Fithian-3] 1,000 mg PO DAILY 06/02/17 06/08/17 History Alfuzosin [Uroxatral] 10 mg PO DAILY 06/03/17 06/08/17 History Dicyclomine [Bentyl] 10 mg PO QID PRN 06/03/17 06/08/17 History Turmeric Root Extract [Turmeric] 500 mg PO DAILY 06/03/17 06/08/17 History Allergies Allergy/AdvReac Type Severity Reaction Status Date / Time phenazopyridine Allergy Mild Verified 06/03/17 15:50 amoxicillin Allergy Unknown Verified 06/03/17 15:50 ampicillin Allergy Unknown Verified 06/03/17 15:50 atorvastatin Allergy Unknown rash Verified 06/03/17 15:50 azithromycin Allergy Unknown Verified 06/03/17 15:50 benzonatate Allergy Unknown Verified 06/03/17 15:50 cefaclor Allergy Unknown Verified 06/03/17 15:50 erythromycin base Allergy Unknown Verified 06/03/17 15:50 fexofenadine Allergy Unknown Verified 06/04/17 13:35 meloxicam Allergy Unknown Verified 06/03/17 15:50 morphine Allergy Unknown NAUSEA Verified 06/03/17 15:50 naproxen Allergy Unknown Verified 06/04/17 13:34 Penicillins Allergy Unknown Verified 06/03/17 15:50 rofecoxib Allergy Unknown Verified 06/03/17 15:50 Sulfa (Sulfonamide Allergy Unknown Verified 06/03/17 15:50 Antibiotics) albuterol AdvReac Unknown Verified 06/04/17 13:34 Exam Vital Signs: Temperature 97.8 F 06/09/17 09:55 Pulse Rate 91 06/09/17 09:00 Respiratory Rate 18 06/09/17 08:30 Blood Pressure 146/87 H 06/09/17 08:30 Pulse Oximetry 93 06/09/17 08:30 Oxygen Delivery Method Room Air Height: 1.71 m Weight: 88 kg Body Mass Index: 29.9 - Constitutional Present: no acute distress, well nourished, well developed - Routine HEENT Exam Head: Present: normocephalic ENT: Present: mucous membranes moist, oropharynx clear - Routine Neck Exam Present: supple. Absent: lymphadenopathy - Routine Respiratory Exam Present: CTA bilaterally - Routine Cardiovascular Exam Present: RRR, S1, S2 - Routine Abdominal Exam Present: soft, normoactive bowel sounds, non distended, non tender - Routine Extremities Exam Present: no edema, pulses intact, normal capillary refill - Routine Back/Spine/Pelvis Exam Back/Spine: Absent: CVA tenderness - Routine Skin Exam Present: intact, dry, warm - Routine Neurological Exam Present: alert, oriented X3, CN II-XII intact, moving all extremities. Absent: motor deficit Results - Labs CBC & Chem 7: 06/09/17 05:11 06/09/17 05:10 Assessment and Plan DVT Prophylaxis: Lovenox Resuscitation Status: Do Not Intubate Assessment and Plan: Assessment Electrolyte abnormalities: Hypokalemia and hypomagnesemia. Nonsustained V. tach, resolved. Uncontrolled hypertension. Recent acute kidney injury, resolved. Dizziness, resolved. Hypoxia, thought to be secondary to home opioid use, resolved. Kidney stone, passed. Plan Electrolyte abnormalities - Potassium and magnesium were within normal range today. We'll repeat tomorrow. May need to adjust replacement doses. - She had acute kidney injury in the acute setting in which her creatinine peaked at 1.9. We'll need to keep an eye on renal function. - at risk for hyperkalemia because of an increased dose of potassium orally plus spironolactone and an NATHALIE inhibitor. Uncontrolled hypertension - Improving - Metoprolol tartrate dose was increased in acute setting (metoprolol succinate , her home medication, was discontinued) - Continue with Aldactone, lisinopril Nonsustained V. tach - Thought to be triggered by hypokalemia. - No episodes since 06/05/17. - Continue telemetry while on IRU. Discharge planning - She will need Rx for Metoprolol tartrate, Spironolactone, KDur, and MagOx at time of discharge from IRU, since these medications were simply continued from her inpatient medication list. - Since she had opioid induced hypoxia at admission, would recommend stopping oxycodone. - Recommend F/U with Dr. Tenorio within 1 week of DC from IRU. Sepsis Assessment - Evaluation Sepsis screening result: No Definite Risk Hospital Course Summary Disclaimer: The visit summary below is not to be considered part of the above Progress Note. Hospital Course: 06/09/17 Assessment Electrolyte abnormalities: Hypokalemia and hypomagnesemia. Nonsustained V. tach, resolved. Uncontrolled hypertension. Recent acute kidney injury, resolved. Dizziness, resolved. Hypoxia, thought to be secondary to home opioid use, resolved. Kidney stone, passed. Plan Electrolyte abnormalities - Potassium and magnesium were within normal range today. We'll repeat tomorrow. May need to adjust replacement doses. - She had acute kidney injury in the acute setting in which her creatinine peaked at 1.9. We'll need to keep an eye on renal function. - at risk for hyperkalemia because of an increased dose of potassium orally plus spironolactone and an NATHALIE inhibitor. Uncontrolled hypertension - Improving - Metoprolol tartrate dose was increased in acute setting (metoprolol succinate , her home medication, was discontinued) - Continue with Aldactone, lisinopril Nonsustained V. tach - Thought to be triggered by hypokalemia. - No episodes since 06/05/17. - Continue telemetry while on IRU. Discharge planning - She will need Rx for Metoprolol tartrate, Spironolactone, KDur, and MagOx at time of discharge from IRU, since these medications were simply continued from her inpatient medication list. - Since she had opioid induced hypoxia at admission, would recommend stopping oxycodone. - Recommend F/U with Dr. Tenorio within 1 week of DC from IRU. <Yossi Jeff - Last Filed: 06/09/17 14:40> History of Present Illness Date: 06/09/17 [facility] Patient Stated Medical History Cataracts Yes: REMOVED Dental Problems Yes: DENTURES Hypertension Yes Constipation No Hx Incontinence No Hx Kidney Stones Yes Hx Renal Disease Yes Osteoarthritis Yes Shingles Yes Other Yes: osteoporosis, arthritis, hammer toe surgery , multiple lithotripsy Depression Yes: 1960'S Post Menopausal Yes Exam Vital Signs: Temperature 97.8 F 06/09/17 09:55 Pulse Rate 91 06/09/17 09:00 Respiratory Rate 18 06/09/17 08:30 Blood Pressure 146/87 H 06/09/17 08:30 Pulse Oximetry 93 06/09/17 08:30 Oxygen Delivery Method Room Air Height: 5 ft 7.5 in Weight: 88 kg Results - Labs CBC & Chem 7: 06/09/17 05:11 06/09/17 05:10 Assessment and Plan Assessment and Plan: Above pt was seen and examined. Agree with physical exam. She is doing well tolerating her medications and K. Will recheck K in the AM Hospital Course Summary Disclaimer: The visit summary below is not to be considered part of the above Progress Note.
--- NOTE | 2017-06-09 12:43 | IRU Team Meeting ---
IRU Team Meeting - Nursing Vital Signs: Vital Signs - 24 hr 06/08/17 14:33 06/08/17 16:15 06/08/17 18:55 Temperature 98.8 F Pulse Rate 70 75 70 Respiratory Rate 18 18 Blood Pressure 169/78 H Pulse Oximetry 94 94 06/08/17 19:15 06/09/17 01:16 06/09/17 08:30 Temperature 98.3 F Pulse Rate 72 76 85 Respiratory Rate 18 18 Blood Pressure 161/79 H 146/87 H Pulse Oximetry 94 93 06/09/17 09:00 06/09/17 09:55 Temperature 97.8 F Pulse Rate 91 Respiratory Rate Blood Pressure Pulse Oximetry Current Medications: Acetaminophen (Tylenol) 1,000 mg PO TID PRN PRN Reason: Pain Last Admin: 06/08/17 23:22 Dose: 1,000 mg Alfuzosin HCl (Uroxatral) 10 mg PO DAILY [facility] Last Admin: 06/09/17 08:52 Dose: 10 mg Dicyclomine HCl (Bentyl) 10 mg PO ACHS PRN Enoxaparin Sodium (Lovenox) 40 mg SQ DAILY [facility] Last Admin: 06/09/17 08:52 Dose: 40 mg Lisinopril (Prinivil) 40 mg PO DAILY [facility] Last Admin: 06/09/17 08:53 Dose: 40 mg Magnesium Oxide (Magox) 800 mg PO DAILY [facility] Last Admin: 06/09/17 08:53 Dose: 800 mg Metoprolol Tartrate (Lopressor) 50 mg PO BIDWM [facility] Last Admin: 06/09/17 08:52 Dose: 50 mg Multivitamins/Minerals (Therapeutic - M) 1 tab PO DAILY [facility] Last Admin: 06/09/17 08:55 Dose: 1 tab Chromium Picolinate (500mcg - Pt Own) 500 mcg PO BID [facility] Last Admin: 06/09/17 11:43 Dose: Not Given Turmeric Root Extract 500mg - Pt Own 500 mg PO DAILY [facility] Last Admin: 06/09/17 11:43 Dose: Not Given [id number] Ethyl Esters (Lovaza) 1 gm PO DAILY [facility] Last Admin: 06/09/17 08:52 Dose: 1 gm Ondansetron HCl (Zofran) 4 mg IVP Q6H PRN PRN Reason: Nausea &/or vomiting Oxycodone HCl (Roxicodone *Ir*) 5 mg PO Q6H PRN PRN Reason: Pain Potassium Chloride (K-Dur) 20 meq PO BIDWM [facility] Last Admin: 06/09/17 08:53 Dose: 20 meq Sodium Chloride (Iv Flush) 10 - 80 ml IV PRN PRN PRN Reason: Flushing Last Admin: 06/09/17 08:53 Dose: 10 ml Spironolactone (Aldactone) 25 mg PO DAILY [facility] Last Admin: 06/09/17 08:53 Dose: 25 mg Venlafaxine HCl (Effexor Xr) 75 mg PO WB [facility] Last Admin: 06/09/17 08:53 Dose: 75 mg Venlafaxine HCl (Effexor Xr) 37.5 mg PO HS [facility] Last Admin: 06/08/17 22:02 Dose: 37.5 mg Comments: Pt admitted to acute rehab after kidney stone, hypokalemia and non-sustained v- tach. Her potassium is now normal. Pain in left buttock. Forgetful, incont/wears briefs. - Physical Therapy Sit to Stand Chair Transfer Ability: Minimal Assistance Stand to Sit Chair Transfer Ability: Minimal Assistance Comments: Cooperative. Min assist for transfers and ambulation. Will try four wheeled walker. - Occupational Therapy Grooming Ability: Stand By Assist/Supervision Bathing Ability: Stand By Assist/Supervision Upper Body Dressing Ability: Stand By Assist/Supervision Lower Body Dressing Ability: Stand By Assist/Supervision Lower Body Dressing Comment: She requires verbal cueing. May benefit from shower chair. - Care Plan Anticipated Length of Stay: 3 Anticipated DC Destination: Home, Self Care Interventions/Goals: Doing well. Can benefit from a few more days to work with asistive device and improve endurance. Goals: Teach walker, improve safety awareness to 100%, determine appropriate assistive device, improve endurance to one rest break in a 60 minute therapy session. Barriers: safety awareness and endurance.
[2017-06-09] MEDS: ACETAMINOPHEN 500 MG TABLET PO PRN (20:25)
[2017-06-10] MEDS: CHROMIUM PICOLINATE 500 MCG PO SCH ×3 (00:02→21:40)
[2017-06-10] MEDS: Venlafaxine XR 37.5 MG CAPSULE (24hr) PO SCH ×2 (00:02→21:37)
[2017-06-10] MEDS: TURMERIC ROOT EXTRACT 500 MG PO SCH (08:31)
[2017-06-10] MEDS: MULTI-VITAMIN + MINERAL TABLET PO SCH (09:23)
[2017-06-10] MEDS: LISINOPRIL 40 MG TABLET PO SCH (09:23)
[2017-06-10] MEDS: MAGNESIUM OXIDE 400 MG TABLET PO SCH (09:23)
[2017-06-10] MEDS: OMEGA-3 ACID ESTERS 1 GM CAPSULE PO SCH (09:24)
[2017-06-10] MEDS: SPIRONOLACTONE 25 MG TABLET PO SCH (09:24)
[2017-06-10] MEDS: ALFUZOSIN ER 10 MG TABLET PO SCH (09:24)
[2017-06-10] MEDS: ENOXAPARIN 40 MG/0.4 ML INJECTION SQ SCH (09:25)
[2017-06-10] MEDS: Venlaflaxine XR 75 MG CAPSULE (24hr) PO SCH (09:25)
--- NOTE | 2017-06-10 10:09 | Progress Note ---
Subjective: Mrs Adler in this morning in follow-up following her shower. She reports that she has been working hard. States that she did a lot of work. Yesterday with therapy and could tell that she was fatigued with a mild backache last night. Symptoms have resolved with Tylenol. Denies having any shortness of breath or chest pain. Denies any palpitations. No difficulty with urination, however. Bowels have not yet moved. Objective Vital signs: Temperature 98.3 F 06/10/17 08:00 Pulse Rate 77 06/10/17 08:00 Respiratory Rate 16 06/10/17 08:00 Blood Pressure 164/68 H 06/10/17 08:00 Pulse Oximetry 93 06/10/17 08:00 Oxygen Delivery Method Room Air Body Mass Index: 29.9 - Constitutional Present: no acute distress, well nourished, well developed - Routine HEENT Exam Head: Present: normocephalic Eye: Present: EOMI ENT: Present: mucous membranes moist, dentition normal - Routine Respiratory Exam Present: CTA bilaterally. Absent: wheezes - Routine Cardiovascular Exam Present: RRR, S1, S2, no murmur. Absent: murmur - Routine Abdominal Exam Present: soft, normoactive bowel sounds, non distended. Absent: tenderness - Routine Extremities Exam Present: normal capillary refill - Routine Skin Exam Present: intact, dry, warm - Routine Neurological Exam Present: alert, oriented X3, CN II-XII intact - Routine Lymphatic Exam Lymphatic: Absent: adenopathy - Routine Psychiatric Exam Present: normal affect Results - Labs CBC & Chem 7: 06/09/17 05:11 06/10/17 04:47 Assessment and Plan Assessment and Plan: Electrolyte abnormalities: Hypokalemia and hypomagnesemia. Nonsustained V. tach, resolved. Uncontrolled hypertension. Recent acute kidney injury, resolved. Dizziness, resolved. Hypoxia, thought to be secondary to home opioid use, resolved. Kidney stone, passed. Plan- 06/10 Electrolyte abnormalities- potassium and magnesium have remained normal today. We will continue to follow this periodically. Given her recent electrolyte abnormalities and nonsustained V. tach. Uncontrolled hypertension Overall improving. Continue to monitor blood pressures. This morning was slightly elevated at 164/68. Continue on current regimen. Lopressor 50, lisinopril 40, and Aldactone 25mg. Nonsustained V. tach Thought to be triggered by hypokalemia. No further episodes. Continue on telemetry to monitor Discharge planning - She will need Rx for Metoprolol tartrate, Spironolactone, KDur, and MagOx at time of discharge from IRU, since these medications were simply continued from her inpatient medication list. Sepsis Assessment - Evaluation Sepsis screening result: No Definite Risk Hospital Course Summary Disclaimer: The visit summary below is not to be considered part of the above Progress Note. Hospital Course: 06/09/17 Assessment Electrolyte abnormalities: Hypokalemia and hypomagnesemia. Nonsustained V. tach, resolved. Uncontrolled hypertension. Recent acute kidney injury, resolved. Dizziness, resolved. Hypoxia, thought to be secondary to home opioid use, resolved. Kidney stone, passed. Plan Electrolyte abnormalities - Potassium and magnesium were within normal range today. We'll repeat tomorrow. May need to adjust replacement doses. - She had acute kidney injury in the acute setting in which her creatinine peaked at 1.9. We'll need to keep an eye on renal function. - at risk for hyperkalemia because of an increased dose of potassium orally plus spironolactone and an NATHALIE inhibitor. Uncontrolled hypertension - Improving - Metoprolol tartrate dose was increased in acute setting (metoprolol succinate , her home medication, was discontinued) - Continue with Aldactone, lisinopril Nonsustained V. tach - Thought to be triggered by hypokalemia. - No episodes since 06/05/17. - Continue telemetry while on IRU. Discharge planning - She will need Rx for Metoprolol tartrate, Spironolactone, KDur, and MagOx at time of discharge from IRU, since these medications were simply continued from her inpatient medication list. - Since she had opioid induced hypoxia at admission, would recommend stopping oxycodone. - Recommend F/U with Dr. Tenorio within 1 week of DC from IRU. Plan- 06/10 Electrolyte abnormalities- potassium and magnesium have remained normal today. We will continue to follow this periodically. Given her recent electrolyte abnormalities and nonsustained V. tach. Uncontrolled hypertension Overall improving. Continue to monitor blood pressures. This morning was slightly elevated at 164/68. Continue on current regimen. Lopressor 50, lisinopril 40, and Aldactone 25mg. Nonsustained V. tach Thought to be triggered by hypokalemia. No further episodes. Continue on telemetry to monitor Discharge planning - She will need Rx for Metoprolol tartrate, Spironolactone, KDur, and MagOx at time of discharge from IRU, since these medications were simply continued from her inpatient medication list.
--- NOTE | 2017-06-10 10:34 | IRU Progress Note ---
- Subjective/Serverity of Illness Ms. Adler was evaluated in her room. She reports significant fatigue from yesterday's activities, not on therapy but also some visitors. Does have some dyspnea with exertion. Had numerous questions about going home and home health. These were addressed. In addition she would like to restart her chromium picolinate which will be accomplished. She has had no further episodes of renal colic. In addition she has had no further episodes of hypoxia. Her telemetry has revealed normal sinus mechanism without recurrence of her ventricular tachycardia since her potassium has been normalized. We appreciate the assistance of the hospitalist service in this regard as well. We addressed questions regarding home health as well as permissible and what was not. We feel as though she would've a benefit from home health. She wondered about driving and we discussed the fact that she should wait until she is stronger. In addition we have provided a 4 wheeled walker with a seat and she is happy with that. We anticipate dismissal in a couple days assuming she is still improving. Exam Vital Signs: Temperature 98.3 F 06/10/17 08:00 Pulse Rate 77 06/10/17 08:00 Respiratory Rate 16 06/10/17 08:00 Blood Pressure 164/68 H 06/10/17 08:00 Pulse Oximetry 93 06/10/17 08:00 Oxygen Delivery Method Room Air Height: 1.71 m Weight: 88 kg Body Mass Index: 29.9 - Constitutional Present: no acute distress Comments: The patient is awake, alert and oriented and in no acute distress. Pupils are equal. The neck is supple. Chest: Clear to auscultation bilaterally. Cor: RR with no shar, click nor murmur Abd: soft with normo-active bowel sounds. There are no masses, no tenderness and no guarding. Extremities: No edema is noted. There are good pulses in both ankles. No cyanosis is present. Telemetry demonstrates normal sinus mechanism. - Routine HEENT Exam Head: Present: normocephalic Eye: Present: EOMI ENT: Present: mucous membranes moist - Routine Neck Exam Present: supple, full ROM - Routine Respiratory Exam Present: CTA bilaterally. Absent: accessory muscle use, dyspnea - Routine Cardiovascular Exam Present: RRR, S1, S2, no murmur - Routine Abdominal Exam Present: soft, normoactive bowel sounds, non distended, non tender - Routine Extremities Exam Present: cyanosis, no edema - Routine Back/Spine/Pelvis Exam Back/Spine: Present: full ROM - Routine Skin Exam Present: intact. Absent: erythema - Routine Neurological Exam Present: alert, oriented X3, CN II-XII intact - Routine Psychiatric Exam Present: normal affect, normal thought process Results IRU - Labs Labs: Have reviewed telemetry strips which continue to demonstrate normal sinus mechanism. Sepsis Assessment - Evaluation Sepsis screening result: No Definite Risk IRU A/P (1) Hypokalemia Current visit: Yes Status: Resolved (2) Ventricular tachycardia, non-sustained Current visit: Yes Status: Resolved Patient continues on telemetry. She has not had further recurrences. (3) Renal calculi Current visit: Yes Status: Acute Continues to demonstrate renal calculi on radiographic studies but these are asymptomatic at present. No current evidence of obstruction. (4) Debility Current visit: Yes Status: Acute Patient requires contact-guard assistance to standby assistance for ambulation and transfers and dressing. She is improving. We recommend another couple or 3 days of therapy before going home. Multiple questions were addressed in this regard. (5) Benign essential hypertension Current visit: Yes Status: Acute Blood pressure is variable. Some values are pending 160 range but mostly they' re controlled. DVT Prophylaxis: Lovenox Resuscitation Status: Do Not Intubate - Course Hospital Course: Christopher Rivera MD: 06/09/17 10:41 Continues to progress with therapy. Complains of left buttock pain where she fell at home. Telemetry shows normal sinus mechanism without recurrence of ventricular tachycardia. Potassium normalized. 06/10/17 10:36 Patient now has a 4 wheeled walker that she is finding beneficial. Discussed use of this at home and the fact that she should not be driving until she is stronger. Ventricular tachycardia has not recurred and her potassium remains normal. Anticipate home in a couple of days if making progress. - Interventions to Obtain Goals PT Treatment Plan: Balance/Proprioception, Functional Activities, Gait Training , Patient/Family Education, Therapeutic Exercise OT Treatment Plan: ADL (Basic Care), Balance Training, IADL, Pt./Family Education, Ther. Exercise for ADL, UE Functional Training Goals Progress/Modifications: She is improving regarding her ambulation skills, transfers and dressing. Please note that the patient's individual plan of care was developed and documented today, requiring review of therapy notes, medical conditions and anticipated functional recovery. Please see separate document. This required an additional 20 minutes of time and required additional medical decision making.
--- NOTE | 2017-06-10 10:41 | IRU Plan of Care ---
IRU Overall Plan of Care - Date Date: 06/10/17 - Patient Impairments (1) Renal calculi Code(s): N20.0 - Calculus of kidney Status: Acute Classification: Present on IRF Admission, Diagnosis Requiring Medical Follow Up (2) Ventricular tachycardia, non-sustained Code(s): I47.2 - Ventricular tachycardia Status: Resolved Classification: Diagnosis Requiring Medical Follow Up, Other Contributing Factor (3) Hypokalemia Code(s): E87.6 - Hypokalemia Status: Resolved Classification: Present on IRF Admission, IRF Tx That Should Address Diagnosis, Diagnosis Requiring Medical Follow Up (4) Debility Code(s): R53.81 - Other malaise Status: Acute Classification: Present on IRF Admission, IRF Tx That Should Address Diagnosis, Diagnosis Requiring Medical Follow Up (5) Benign essential hypertension Code(s): I10 - Essential (primary) hypertension Status: Acute Classification: Present on IRF Admission, IRF Tx That Should Address Diagnosis, Diagnosis Requiring Medical Follow Up - Relevant Changes Relevant Changes: No Reviewed: I have reviewed the patient's information and concur with the finding and results of the pre-admission screen. Certification: I certify the patient for rehabilitation. - Medical Prognosis Medical Prognosis: Good Vital Signs: Last Vital Signs Temp 98.3 F 06/10/17 08:00 Pulse 77 06/10/17 08:00 Resp 16 06/10/17 08:00 BP 164/68 H 06/10/17 08:00 Pulse Ox 93 06/10/17 08:00 Laboratory: Chemistries are reviewed. Potassium has normalized. Telemetry strips also reviewed. - Anticipated Interventions Anticipated Interventions: The patient requires inpatient IRF care for PT, OT, and/or ST for residuals remaining from hypokalemia, ventricular tachycardia (nonsustained) renal colic and acute kidney injury resulting in muscular weakness and strength deficits. - FIM Ambulation Distance: 455 Toileting Adaptive Equipment: Grab Bars Number of Continent Voids: 2 Number of Incontinent Voids: 1 - Current Functional Status Failed Alternative Therapy: Arrived from Acute Care Patient Requires: The patient requires oversight by rehabilitation physician to manage their rehabilitation treatment plan and multidisciplinary approach to care that can only be provided in an IRF and requires a multidisciplinary approach to care, provided by professional PTs, OTs, STs, dieticians, RTs, rehabilitation nurses and is not available in lesser levels of care. Physical Therapy Minutes: 90 Occupational Therapy Minutes: 90 Therapy: The patient is to receive therapy at least 5 days a week. - Anticipated LOS/Outcomes Anticipated Functional Outcome: Anticipated functional outcome is that the patient may return to her home for independent living. She will go home with a four-wheel walker. She will be able to dress herself independently and could occur own meals and ambulate safely. Anticipated Length of Stay: 3 Anticipated DC Destination: Home, Self Group Home Safety Plan: The patient will be provided with the development of a Home Safety Plan for return to a home or home-like environment and and to ensure safety post discharge. - Plan to Avoid Complications Barriers to Attaining Goals: Weakness, Endurance, Medical Limitation Plan to Avoid Complications: The patient cannot receive this care in a lesser intensive setting such as Custodial or Outpatient Therapy due to the patient requiring the following telemetry monitoring for recurrence of nonsustained ventricular tachycardia, replacement of potassium, monitoring of chemistry values, as well as the need for skilled physical therapy and occupational therapy at least 3 hours daily in order to return her to her previous level of functioning and avoid readmission..
[2017-06-10] MEDS ORDERED: SPIRONOLACTONE 25 MG TABLET PO ONE (12:00)
[2017-06-10] MEDS: POLYETHYL GLYCOL 3350 17gm PACKET PO SCH (12:12)
[2017-06-10] MEDS: SENNA + DOCUSATE TABLET PO SCH (12:12)
[2017-06-10] MEDS: ACETAMINOPHEN 500 MG TABLET PO PRN ×2 (12:36→21:41)
[2017-06-11] MEDS: MAGNESIUM OXIDE 400 MG TABLET PO SCH (08:51)
[2017-06-11] MEDS: ALFUZOSIN ER 10 MG TABLET PO SCH (08:51)
[2017-06-11] MEDS: Venlaflaxine XR 75 MG CAPSULE (24hr) PO SCH (08:51)
[2017-06-11] MEDS: MULTI-VITAMIN + MINERAL TABLET PO SCH (08:52)
[2017-06-11] MEDS: SPIRONOLACTONE 50 MG TABLET PO SCH (08:52)
[2017-06-11] MEDS: OMEGA-3 ACID ESTERS 1 GM CAPSULE PO SCH (08:52)
[2017-06-11] MEDS: LISINOPRIL 40 MG TABLET PO SCH (08:52)
[2017-06-11] MEDS: ENOXAPARIN 40 MG/0.4 ML INJECTION SQ SCH (08:53)
[2017-06-11] MEDS: ACETAMINOPHEN 500 MG TABLET PO PRN ×3 (08:53→21:01)
[2017-06-11] MEDS: SALINE FLUSH 10ml SYRINGE IV PRN ×3 (08:53→20:01)
[2017-06-11] MEDS: CHROMIUM PICOLINATE 500 MCG PO SCH ×2 (08:55→21:01)
[2017-06-11] MEDS: SENNA + DOCUSATE TABLET PO SCH (08:56)
[2017-06-11] MEDS: POLYETHYL GLYCOL 3350 17gm PACKET PO SCH (08:56)
[2017-06-11] MEDS ORDERED: FALL RISK - PHARMACY CONSULT XX ONE (09:51)
[2017-06-11] MEDS: TURMERIC ROOT EXTRACT 500 MG PO SCH (09:55)
--- NOTE | 2017-06-11 10:44 | Progress Note ---
Subjective: Patient seen today during therapy. Overall she reports she is doing very well. She has some low back pain she relates to arthritis. She is feeling stronger. She's had no palpitations. Objective Vital signs: Temperature 98.1 F 06/11/17 08:00 Pulse Rate 85 06/11/17 08:00 Respiratory Rate 18 06/11/17 08:00 Blood Pressure 156/76 H 06/11/17 08:00 Pulse Oximetry 93 06/11/17 08:00 Oxygen Delivery Method Room Air Weight: 85.2 kg - Constitutional Present: no acute distress, well nourished, well developed - Routine HEENT Exam Head: Present: normocephalic, atraumatic Eye: Present: EOMI ENT: Present: mucous membranes moist, dentition normal - Routine Respiratory Exam Present: CTA bilaterally. Absent: wheezes - Routine Cardiovascular Exam Present: RRR, S1, S2. Absent: murmur - Routine Abdominal Exam Present: soft, normoactive bowel sounds, non distended. Absent: tenderness - Routine Extremities Exam Present: no edema, normal capillary refill - Routine Skin Exam Present: dry, warm - Routine Neurological Exam Present: alert, oriented X3 - Routine Lymphatic Exam Lymphatic: Absent: adenopathy - Routine Psychiatric Exam Present: normal affect, normal thought process Results - Labs CBC & Chem 7: 06/09/17 05:11 06/10/17 04:47 Labs: Laboratory Tests 06/08/17 06/09/17 06/10/17 07:48 05:10 04:47 Potassium 3.3 L 4.1 D 4.3 Assessment and Plan Assessment and Plan: Assessment Electrolyte abnormalities: Hypokalemia and hypomagnesemia, resolved Nonsustained V. tach, resolved. Hypertension. Recent acute kidney injury, resolved. Dizziness, resolved. Hypoxia, thought to be secondary to home opioid use, resolved. Kidney stone, passed. Plan Electrolyte abnormalities- potassium is trending up. On 06/08 result was 3.3. Yesterday it was 4.3. We' ll continue to monitor electrolytes. Check BMP tomorrow. Uncontrolled hypertension Overall her pressures are reasonable for an 87-year-old.. Continue to monitor blood pressures. Continue on current regimen. Lopressor 50, lisinopril 40, and Aldactone 25mg. Nonsustained V. tach-resolved Telemetry reviewed. Other than some sinus tachycardia, she has been in normal sinus rhythm with rates averaging 90. Discharge planning - She will need Rx for Metoprolol tartrate, Spironolactone, KDur, and MagOx at time of discharge from IRU, since these medications were simply continued from her inpatient medication list. Sepsis Assessment - Evaluation Sepsis screening result: No Definite Risk Hospital Course Summary Disclaimer: The visit summary below is not to be considered part of the above Progress Note. Hospital Course: 06/09/17 Assessment Electrolyte abnormalities: Hypokalemia and hypomagnesemia. Nonsustained V. tach, resolved. Uncontrolled hypertension. Recent acute kidney injury, resolved. Dizziness, resolved. Hypoxia, thought to be secondary to home opioid use, resolved. Kidney stone, passed. Plan Electrolyte abnormalities - Potassium and magnesium were within normal range today. We'll repeat tomorrow. May need to adjust replacement doses. - She had acute kidney injury in the acute setting in which her creatinine peaked at 1.9. We'll need to keep an eye on renal function. - at risk for hyperkalemia because of an increased dose of potassium orally plus spironolactone and an NATHALIE inhibitor. Uncontrolled hypertension - Improving - Metoprolol tartrate dose was increased in acute setting (metoprolol succinate , her home medication, was discontinued) - Continue with Aldactone, lisinopril Nonsustained V. tach - Thought to be triggered by hypokalemia. - No episodes since 06/05/17. - Continue telemetry while on IRU. Discharge planning - She will need Rx for Metoprolol tartrate, Spironolactone, KDur, and MagOx at time of discharge from IRU, since these medications were simply continued from her inpatient medication list. - Since she had opioid induced hypoxia at admission, would recommend stopping oxycodone. - Recommend F/U with Dr. Tenorio within 1 week of DC from IRU. Plan- 06/10 Electrolyte abnormalities- potassium and magnesium have remained normal today. We will continue to follow this periodically. Given her recent electrolyte abnormalities and nonsustained V. tach. Uncontrolled hypertension Overall improving. Continue to monitor blood pressures. This morning was slightly elevated at 164/68. Continue on current regimen. Lopressor 50, lisinopril 40, and Aldactone 25mg. Nonsustained V. tach Thought to be triggered by hypokalemia. No further episodes. Continue on telemetry to monitor Discharge planning - She will need Rx for Metoprolol tartrate, Spironolactone, KDur, and MagOx at time of discharge from IRU, since these medications were simply continued from her inpatient medication list. 06/11/17 Overall doing well. Potassium trending up mildly. Will check BMP tomorrow. No medication changes. Blood pressures are stable. No further V. tach.
[2017-06-11] MEDS: Venlafaxine XR 37.5 MG CAPSULE (24hr) PO SCH (21:00)
[2017-06-12] MEDS: Venlaflaxine XR 75 MG CAPSULE (24hr) PO SCH (08:46)
[2017-06-12] MEDS: ENOXAPARIN 40 MG/0.4 ML INJECTION SQ SCH (08:46)
[2017-06-12] MEDS: SPIRONOLACTONE 50 MG TABLET PO SCH (08:47)
[2017-06-12] MEDS: MAGNESIUM OXIDE 400 MG TABLET PO SCH (08:48)
[2017-06-12] MEDS: CHROMIUM PICOLINATE 500 MCG PO SCH (08:48)
[2017-06-12] MEDS: OMEGA-3 ACID ESTERS 1 GM CAPSULE PO SCH (08:48)
[2017-06-12] MEDS: POLYETHYL GLYCOL 3350 17gm PACKET PO SCH (08:49)
[2017-06-12] MEDS: SENNA + DOCUSATE TABLET PO SCH (08:50)
[2017-06-12] MEDS: MULTI-VITAMIN + MINERAL TABLET PO SCH (08:50)
[2017-06-12] MEDS: LISINOPRIL 40 MG TABLET PO SCH (08:50)
[2017-06-12] MEDS: ALFUZOSIN ER 10 MG TABLET PO SCH (08:51)
[2017-06-12 09:53] VITALS: BP 158/74; PULSE 72; RESP 18; TEMP 97.9; O2SAT 97
[2017-06-12] MEDS ORDERED: AMLODIPINE 5 MG TABLET PO SCH (10:15)
--- NOTE | 2017-06-12 10:56 | IRU Progress Note ---
- Subjective/Serverity of Illness Ms. Adler was evaluated when she was in her room. She is doing exceptionally well. She is preparing to go home today. She has made improvements and has met many of her goals. She will go home with a 4 wheeled walker with a seat. Medically, she is stable. She has had no further episodes of ventricular tachycardia. Potassium remains slightly up at 5.2, then down to 5.1. Hospitalists are managing this aspect. I think she is stable to return home safely at this time. Exam Vital Signs: Temperature 97.9 F 06/12/17 08:00 Pulse Rate 72 06/12/17 08:00 Respiratory Rate 18 06/12/17 08:00 Blood Pressure 158/74 H 06/12/17 08:00 Pulse Oximetry 97 06/12/17 08:00 Oxygen Delivery Method Room Air Height: 1.71 m Weight: 88.4 kg Body Mass Index: 29.9 - Constitutional Present: no acute distress Comments: The patient is awake, alert and oriented and in no acute distress. Pupils are equal. The neck is supple. Chest: Clear to auscultation bilaterally. Cor: RR with no shar, click nor murmur Abd: soft with normo-active bowel sounds. There are no masses, no tenderness and no guarding. Extremities: No edema is noted. - Routine Neck Exam Present: supple - Routine Respiratory Exam Present: CTA bilaterally Results IRU - Labs Labs: Potassium of 5.1 noted. Oral potassium has been discontinued. Sepsis Assessment - Evaluation Sepsis screening result: No Definite Risk IRU A/P (1) Renal calculi Current visit: Yes Status: Acute She denies further episodes of renal calculi pain. Does have some remaining stones present apparently. (2) Ventricular tachycardia, non-sustained Current visit: Yes Status: Resolved Telemetry has been stable without evidence of further ventricular tachycardia. (3) Hypokalemia Current visit: Yes Status: Resolved She now does demonstrate hyperkalemia to a mild degree. We are pushing fluids. Oral potassium has been discontinued. (4) Debility Current visit: Yes Status: Acute She has improved in several parameters. She is safe to go home. (5) Benign essential hypertension Current visit: Yes Status: Acute DVT Prophylaxis: Lovenox Resuscitation Status: Do Not Intubate - Course Hospital Course: Christopher Rivera MD: 06/09/17 10:41 Continues to progress with therapy. Complains of left buttock pain where she fell at home. Telemetry shows normal sinus mechanism without recurrence of ventricular tachycardia. Potassium normalized. 06/10/17 10:36 Patient now has a 4 wheeled walker that she is finding beneficial. Discussed use of this at home and the fact that she should not be driving until she is stronger. Ventricular tachycardia has not recurred and her potassium remains normal. Anticipate home in a couple of days if making progress. - Interventions to Obtain Goals PT Treatment Plan: Balance/Proprioception, Functional Activities, Gait Training , Patient/Family Education, Therapeutic Exercise OT Treatment Plan: ADL (Basic Care), Balance Training, IADL, Pt./Family Education, Ther. Exercise for ADL, UE Functional Training
--- NOTE | 2017-06-12 11:00 | Discharge Instructions ---
Discharge Plan - Med Rec/Dispo Referrals/Follow Up: Ida Tenorio, [Family Provider] - (Dr. Eliecer Tenorio on 06/23/17 at 10:40 am for Hosp. follow-up. [phone]. [address] [place] [address]) Prescriptions: No Action Acetaminophen [Tylenol Extra Strength] 1,000 mg PO TID PRN #0 PRN Reason: PAIN [place]-3 Fatty Acids [[place]-3] 1,000 mg PO DAILY Chromium Picolinate 500 mcg PO BID Oxycodone HCl [Oxaydo] 5 mg PO Q6HPRN PRN #20 tablet.orl PRN Reason: Pain Dicyclomine [Bentyl] 10 mg PO QID PRN PRN Reason: Prn Orders Turmeric Root Extract [Turmeric] 500 mg PO DAILY Metoprolol Tartrate [Lopressor] 50 mg PO BIDWM tablet Potassium Chloride ER Tab [K-Dur] 20 meq PO BIDWM tablet Saline Flush [IV Flush] 10 - 80 ml IVF PRN PRN syringe PRN Reason: Flushing Venlafaxine HCl [Effexor Xr] 37.5 mg PO HS #0 Venlafaxine HCl [Effexor Xr] 75 mg PO DAILY #0 Lisinopril 40 mg PO DAILY #0 tab Multivitamin [One Daily Multivitamin] 1 tab PO DAILY Alfuzosin [Uroxatral] 10 mg PO DAILY Magnesium Oxide [Magox] 800 mg PO DAILY tablet Ondansetron Inj [Zofran] 4 mg IVP Q6H PRN vial PRN Reason: Nausea &/Or Vomiting Spironolactone [Aldactone] 25 mg PO DAILY tablet Discharge Instructions/Outpatient Orders: Final Provider Discharge Instructions Location: Determined By Patient - Disposition 01 Discharged Home, Self-Care
--- NOTE | 2017-06-12 11:42 | Discharge Instructions ---
Discharge Plan - Med Rec/Dispo Referrals/Follow Up: Ida Tenorio, DO [Family Provider] - (Dr. Eliecer Tenorio on 06/23/17 at 10:40 am for Hosp. follow-up. [phone]. [address] [place] [address]) Additional Instructions: Will need BMP lab work on thursday06/15/17. Bring lab order with you Prescriptions: New Senna + Docusate [Senna Plus Tablet] 1 tab PO DAILY tablet Amlodipine [Norvasc] 5 mg PO DAILY #30 tablet Continue Acetaminophen [Tylenol Extra Strength] 1,000 mg PO TID PRN #0 PRN Reason: PAIN Boerne-3 Fatty Acids [Boerne-3] 1,000 mg PO DAILY Chromium Picolinate 500 mcg PO BID Dicyclomine [Bentyl] 10 mg PO QID PRN PRN Reason: Prn Orders Turmeric Root Extract [Turmeric] 500 mg PO DAILY Metoprolol Tartrate [Lopressor] 50 mg PO BIDWM tablet Venlafaxine HCl [Effexor Xr] 37.5 mg PO HS #0 Venlafaxine HCl [Effexor Xr] 75 mg PO DAILY #0 Lisinopril 40 mg PO DAILY #0 tab Multivitamin [One Daily Multivitamin] 1 tab PO DAILY Alfuzosin [Uroxatral] 10 mg PO DAILY Magnesium Oxide [Magox] 800 mg PO DAILY tablet Discontinued Potassium Chloride ER Tab [K-Dur] 20 meq PO BIDWM tablet Saline Flush [IV Flush] 10 - 80 ml IVF PRN PRN syringe PRN Reason: Flushing Ondansetron Inj [Zofran] 4 mg IVP Q6H PRN vial PRN Reason: Nausea &/Or Vomiting Spironolactone [Aldactone] 25 mg PO DAILY tablet No Action Oxycodone HCl [Oxaydo] 5 mg PO Q6HPRN PRN #20 tablet.orl PRN Reason: Pain Discharge Instructions/Outpatient Orders: Final Provider Discharge Instructions Location: Determined By Patient
--- NOTE | 2017-06-12 11:49 | Progress Note ---
Progress Note: Patient is seen this morning. Did discuss elevation in her potassium. Case discussed with attending as well as Dr. Rivera. Potassium supplementation is discontinued. As well as Aldactone. Patient is placed on Norvasc 5 grams daily for blood pressure control. Patient given prescription for outpatient labs to be obtained at [facility] for Friday 06/15, and results sent to primary care provider, Dr. Ida Tenorio.
[2017-06-12] MEDS: TURMERIC ROOT EXTRACT 500 MG PO SCH (12:16)
[2017-06-12] MEDS: ACETAMINOPHEN 500 MG TABLET PO PRN (12:21)
--- NOTE | 2017-06-12 13:18 | Discharge Summary ---
Discharge Information Date of admission: 06/08/17 14:15 Anticipated date of discharge: 06/12/17 Attending Physician: Christopher Rivera MD Primary care physician: Ida Tenorio DO Consults: 06/08/17 14:40 Physician Consult [CONS] Routine Consulting Provider: Francesca Milligan Reason For Exam: Medical management Ordering Provider has Notified Child And Family Services Worker: No - Discharge Diagnosis Discharge Diagnosis: 1. Renal calculi 2. Hypokalemia 3. Ventricular tachycardia 4. Hypoxemic respiratory failure - Laboratory Labs: 06/09/17 05:11 06/12/17 09:06 History of Present Illness HPI: Zak Adler is being seen in consultation from Dr. Rivera for medical management of acute kidney injury, hypoxia, nonsustained V. tach, and electrolyte abnormalities. She was hospitalized from 06/03 through 06/08, and discharged to IRU for strengthening and ongoing monitoring of electrolytes and heart rhythm. She was seen in the morning of 06/09/17. She was doing quite well and review of systems was almost entirely negative with the exception of having used "sore behind" from her recent fall prior to hospitalization. She has been ambulating well with a walker. She denies any shortness of breath or chest pain. No cough or cold. No fevers, chills, weakness, dizziness or lightheadedness. She rested well last night. She denies any abdominal pain or GI complaints. She has been urinating without complaints. Her bowels have been moving. No leg swelling. Hospital Course This is a general summary of the patient's hospital course. For more details refer to the complete medical record. Ms. Adler has a history of renal calculi. She was admitted to the acute care stay hospital because of abdominal pain attributed to renal calculi. This was treated medically. She did not require surgery. While on acute care she developed hypokalemia and, on monitor, was noted to have ventricular tachycardia, nonsustained. Interestingly she had had a previous episode of lightheadedness as an outpatient but it was uncertain if that was related or not. She was debilitated and unsteady on her feet. She does live alone during the daytime. For this reason she was felt to be an excellent candidate for acute inpatient rehabilitation to allow her to return to her former level of independent functioning and to avoid a readmission. During the stay on the acute inpatient rehabilitation unit she was seen by physical therapy and occupational therapy 3 hours daily for at least 5 days weekly. The patient improved on this regimen. Physical therapy noted that she improved with her transfers from standby assistance to modified independent status. Toilet transfers also improved from standby assistance to modified independent. Ambulatory ability improved from standby assistance to modified independent. She was able to take 4 steps initially increasing to 12 steps subsequently with simply standby assistance/supervision. The patient was also educated on the use of a 4 wheeled walker and found this to be beneficial. With regard to her potassium, she was placed on potassium supplementation. Her potassium actually became somewhat elevated at 5.2 but this improved down to 5.1 subsequently. Potassium supplementation was discontinued orally and recommendations were made for follow-up BMP as outpatient. She was felt to be stable for dismissal. She had no further episodes of ventricular tachycardia on monitor. She had no further episodes of dizziness or lightheadedness. She will follow-up with her primary care physician subsequently. Hospital course: 06/09/17 Assessment Electrolyte abnormalities: Hypokalemia and hypomagnesemia. Nonsustained V. tach, resolved. Uncontrolled hypertension. Recent acute kidney injury, resolved. Dizziness, resolved. Hypoxia, thought to be secondary to home opioid use, resolved. Kidney stone, passed. Plan Electrolyte abnormalities - Potassium and magnesium were within normal range today. We'll repeat tomorrow. May need to adjust replacement doses. - She had acute kidney injury in the acute setting in which her creatinine peaked at 1.9. We'll need to keep an eye on renal function. - at risk for hyperkalemia because of an increased dose of potassium orally plus spironolactone and an NATHALIE inhibitor. Uncontrolled hypertension - Improving - Metoprolol tartrate dose was increased in acute setting (metoprolol succinate , her home medication, was discontinued) - Continue with Aldactone, lisinopril Nonsustained V. tach - Thought to be triggered by hypokalemia. - No episodes since 06/05/17. - Continue telemetry while on IRU. Discharge planning - She will need Rx for Metoprolol tartrate, Spironolactone, KDur, and MagOx at time of discharge from IRU, since these medications were simply continued from her inpatient medication list. - Since she had opioid induced hypoxia at admission, would recommend stopping oxycodone. - Recommend F/U with Dr. Tenorio within 1 week of DC from IRU. Plan- 06/10 Electrolyte abnormalities- potassium and magnesium have remained normal today. We will continue to follow this periodically. Given her recent electrolyte abnormalities and nonsustained V. tach. Uncontrolled hypertension Overall improving. Continue to monitor blood pressures. This morning was slightly elevated at 164/68. Continue on current regimen. Lopressor 50, lisinopril 40, and Aldactone 25mg. Nonsustained V. tach Thought to be triggered by hypokalemia. No further episodes. Continue on telemetry to monitor Discharge planning - She will need Rx for Metoprolol tartrate, Spironolactone, KDur, and MagOx at time of discharge from IRU, since these medications were simply continued from her inpatient medication list. 06/11/17 Overall doing well. Potassium trending up mildly. Will check BMP tomorrow. No medication changes. Blood pressures are stable. No further V. tach. Discharge Plan - Med Rec/Dispo Referrals/Follow Up: Ida Tenorio, [Family Provider] - (Dr. Eliecer Tenorio on 06/23/17 at 10:40 am for Hosp. follow-up. [phone]. [address] [place] [address]) Truv Instructions: Hypertension (GEN), Fall Prevention (GEN) Additional Instructions: Will need BMP lab work on thursday06/15/17. Bring lab order with you Prescriptions: New Senna + Docusate [Senna Plus Tablet] 1 tab PO DAILY tablet Amlodipine [Norvasc] 5 mg PO DAILY #30 tablet Continue Acetaminophen [Tylenol Extra Strength] 1,000 mg PO TID PRN #0 PRN Reason: PAIN Shushan-3 Fatty Acids [Shushan-3] 1,000 mg PO DAILY Chromium Picolinate 500 mcg PO BID Dicyclomine [Bentyl] 10 mg PO QID PRN PRN Reason: Prn Orders Turmeric Root Extract [Turmeric] 500 mg PO DAILY Metoprolol Tartrate [Lopressor] 50 mg PO BIDWM tablet Venlafaxine HCl [Effexor Xr] 37.5 mg PO HS #0 Venlafaxine HCl [Effexor Xr] 75 mg PO DAILY #0 Lisinopril 40 mg PO DAILY #0 tab Multivitamin [One Daily Multivitamin] 1 tab PO DAILY Alfuzosin [Uroxatral] 10 mg PO DAILY Magnesium Oxide [Magox] 800 mg PO DAILY tablet Discontinued Potassium Chloride ER Tab [K-Dur] 20 meq PO BIDWM tablet Saline Flush [IV Flush] 10 - 80 ml IVF PRN PRN syringe PRN Reason: Flushing Ondansetron Inj [Zofran] 4 mg IVP Q6H PRN vial PRN Reason: Nausea &/Or Vomiting Spironolactone [Aldactone] 25 mg PO DAILY tablet No Action Oxycodone HCl [Oxaydo] 5 mg PO Q6HPRN PRN #20 tablet.orl PRN Reason: Pain Discharge Instructions/Outpatient Orders: Final Provider Discharge Instructions Location: Determined By Patient - Disposition 01 Discharged Home, Self-Care
== END 2017-06-12 14:28 | disposition home health service (06) | DRG 945 ==
PROVIDERS: ADMIT Internal Medicine; ATTEND Internal Medicine